=== PATIENT | male | born 1930 | race African-American/Black ===

== ENCOUNTER 2016-10-09 14:04 | Emergency (ER) | payer MEDICARE ==
[~2016-10-09] VITALS: Ht 182.9 cm; Wt 72.6 kg
[~2016-10-09 14:04] MED LIST: AMLO10TA2 PO; ASPI325T4 PO; ATORVASTATIN CA80 MG PO; BRIM5DRO EACHEYE; FURO40TA4 PO; HYDR-2666 PO; HYDR25TA PO; LATA2.5D3 OP; METO25TA9 PO; OMEP40CA5 PO; TIMO5DRO5 EACHEYE
[2016-10-09] MEDS ORDERED: ACETAMINOPHEN 325 MG TABLET. PO ONE (15:45)
[2016-10-09] MEDS ORDERED: LABETALOL 20 MG/4 ML DISP.SYRIN. IVP ONE (15:45)
[2016-10-09 15:51] LABS: BASO % 0 % (0-3); EOS % 1 % (0-3); HEMATOCRIT 41.2 % (39.0-53.0); HEMOGLOBIN 13.6 g/dL (13.0-17.5); LYMPH # 1.5 x10^3/uL (1.0-4.8); LYMPH % 27 % (24-48); MEAN CORPUSCULAR HEMOGLOBIN 28 pg (25-35); MEAN CORPUSCULAR HGB CONC 33 g/dL (31-37); MEAN CORPUSCULAR VOLUME 85 fL (79-100); MONO % 5 % (0-9); NEUT % 67 % (31-73); PLATELET COUNT 223 x10^3/uL (140-400); RED BLOOD COUNT 4.83 x10^6/uL (4.30-5.70); WHITE BLOOD COUNT 5.5 x10^3/uL (4.0-11.0)
--- NOTE | 2016-10-09 16:20 | RAD ---
CT of the head without contrast, 10/09/2016: History: Headache There is mild cerebral atrophy. The ventricles are within normal limits in size. There is no shift of the midline structures. There is no evidence of acute intracranial hemorrhage or mass effect. Several faint bilateral deep white matter lucencies are noted compatible with chronic ischemic change. There is calcific plaquing of the distal internal carotid arteries. IMPRESSION: 1. Chronic findings as described above. 2. No acute intracranial abnormality is detected. PQRS Compliance Statement: One or more of the following individualized dose reduction techniques were utilized for this examination: 1. Automated exposure control 2. Adjustment of the mA and/or kV according to patient size 3. Use of iterative reconstruction technique
[2016-10-09 16:41] LABS: CALCIUM 10.2 mg/dL (8.5-10.1); CREATININE 1.5 mg/dL (0.7-1.3); GFR 53.8; POTASSIUM 4.2 mmol/L (3.5-5.1)
[2016-10-09 16:49] LABS: BILIRUBIN,URINE NEGATIVE (NEG); GLUCOSE,URINE NEGATIVE (NEG); NITRITE,URINE NEGATIVE (NEG); PH,URINE 6.5; PROTEIN,URINE 100 mg/dL (NEG-TRACE); UROBILINOGEN,URINE 0.2 mg/dL (0.2 mg/dL)
[2016-10-09 17:05] LABS: BACTERIA,URINE FEW /HPF (0-FEW); RBC,URINE 0 /HPF (0-2); SQUAMOUS EPITHELIAL CELL,UR OCC /LPF; WBC,URINE OCC /HPF (0-4)
--- NOTE | 2016-10-09 18:26 | PHYS DOC ---
Past Medical History Past Medical History: Arthritis, GERD, Glaucoma, High Cholesterol, Hypertension Past Surgical History: Other Additional Past Surgical Histo: back surgery Alcohol Use: None Drug Use: None Adult General Chief Complaint Chief Complaint: MULTIPLE COMPLAINTS HPI HPI 86-year-old male who has known history of uncontrolled hypertension and presents with headache that's been present for the last 2-3 weeks. 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 He states he was concerned because he is still having his ongoing headaches. He is also concerned because he had no appetite today. He denies any nausea or vomiting. He denies any fever or chills. He denies any chest pain or shortness of breath. The headache today feels consistent with headaches he's been having for the last several weeks. Review of Systems Review of Systems Constitutional: Denies fever or chills [] Eyes: Denies change in visual acuity, redness, or eye pain [] HENT: Denies nasal congestion or sore throat [] Respiratory: Denies cough or shortness of breath [] Cardiovascular: No additional information not addressed in HPI [] GI: Denies abdominal pain, nausea, vomiting, bloody stools or diarrhea [] : Denies dysuria or hematuria [] Musculoskeletal: Denies back pain or joint pain [] Integument: Denies rash or skin lesions [] Neurologic: Has headache, denies focal weakness or sensory changes [] Endocrine: Denies polyuria or polydipsia [] Current Medications Current Medications Current Medications Medications (Trade) Dose Ordered Sig/Bibi Start Time Stop Time Status Last Admin Dose Admin Acetaminophen (Tylenol) 650 mg 1X ONCE 10/09/16 15:45 10/09/16 15:46 DC 10/09/16 16:17 650 MG Labetalol HCl (Normodyne) 20 mg 1X ONCE 10/09/16 15:45 10/09/16 15:46 DC 10/09/16 16:20 20 MG Allergies Allergies Allergies Coded Allergies Type Severity Reaction Last Updated Verified codeine Adverse Reaction Intermediate doesnt like the way it makes him feel Yes Physical Exam Physical Exam Constitutional: Well developed, well nourished, no acute distress, non-toxic appearance. [] HENT: Normocephalic, atraumatic, bilateral external ears normal, oropharynx moist, no oral exudates, nose normal. [] Eyes: PERRLA, right eye is covered, left eye appears normal, conjunctiva normal , no discharge. [] Neck: Normal range of motion, no tenderness, supple, no stridor. [] Cardiovascular:Heart rate regular rhythm, no murmur [] Lungs & Thorax: Bilateral breath sounds clear to auscultation [] Abdomen: Bowel sounds normal, soft, no tenderness, no masses, no pulsatile masses. [] Skin: Warm, dry, no erythema, no rash. [] Back: No tenderness, no CVA tenderness. [] Extremities: No tenderness, no cyanosis, no clubbing, ROM intact, no edema. [] Neurologic: Alert and oriented X 3, normal motor function, normal sensory function, no focal deficits noted. [] Psychologic: Affect normal, judgement normal, mood normal. [] Current Patient Data Vital Signs Vital Signs Date Time Temp Pulse Resp B/P Pulse Ox O2 Delivery O2 Flow Rate FiO2 10/09/16 18:27 78 180/82 Room Air 10/09/16 17:57 98 10/09/16 14:25 97.4 16 97.4 Lab Values Laboratory Tests Test 10/09/16 14:30 10/09/16 14:45 10/09/16 16:20 Urine Color Yellow Urine Clarity Clear Urine pH 6.5 Urine Specific [place] 1.025 Urine Protein 100mg/dL (NEG-TRACE) Urine Glucose (UA) Negativemg/dL (NEG) Urine Ketones (Stick) Negativemg/dL (NEG) Urine Blood Negative (NEG) Urine Nitrite Negative (NEG) Urine Bilirubin Negative (NEG) Urine Urobilinogen Dipstick 0.2mg/dL (0.2 mg/dL) Urine Leukocyte Esterase Negative (NEG) Urine RBC 0/HPF (0-2) Urine WBC Occ/HPF (0-4) Urine Squamous Epithelial Cells Occ/LPF Urine Bacteria Few/HPF (0-FEW) Urine Mucus Mod/LPF White Blood Count 5.5x10^3/uL (4.0-11.0) Red Blood Count 4.83x10^6/uL (4.30-5.70) Hemoglobin 13.6g/dL (13.0-17.5) Hematocrit 41.2% (39.0-53.0) Mean Corpuscular Volume 85fL (79-100) Mean Corpuscular Hemoglobin 28pg (25-35) Mean Corpuscular Hemoglobin Concent 33g/dL (31-37) Red Cell Distribution Width 16.0% (11.5-14.5) H Platelet Count 223x10^3/uL (140-400) Neutrophils (%) (Auto) 67% (31-73) Lymphocytes (%) (Auto) 27% (24-48) Monocytes (%) (Auto) 5% (0-9) Eosinophils (%) (Auto) 1% (0-3) Basophils (%) (Auto) 0% (0-3) Neutrophils # (Auto) 3.7x10^3uL (1.8-7.7) Lymphocytes # (Auto) 1.5x10^3/uL (1.0-4.8) Monocytes # (Auto) 0.3x10^3/uL (0.0-1.1) Eosinophils # (Auto) 0.0x10^3/uL (0.0-0.7) Basophils # (Auto) 0.0x10^3/uL (0.0-0.2) Sodium Level 141mmol/L (136-145) Potassium Level 4.2mmol/L (3.5-5.1) Chloride Level 104mmol/L (98-107) Carbon Dioxide Level 28mmol/L (21-32) Anion Gap 9 (6-14) Blood Urea Nitrogen 19mg/dL (8-26) Creatinine 1.5mg/dL (0.7-1.3) H Estimated GFR (Cockcroft-Gault) 53.8 Glucose Level 131mg/dL (70-99) H Calcium Level 10.2mg/dL (8.5-10.1) H Laboratory Tests 10/09/16 14:45 Laboratory Tests 10/09/16 16:20 EKG EKG EKG is interpreted by me shows sinus rhythm with a nonspecific intraventricular block. There is an approximate rate 85 bpm. There are no obvious ischemic findings on this EKG. Radiology/Procedures Radiology/Procedures CT of the head without contrast demonstrated the following: There is mild cerebral atrophy. The ventricles are within normal limits in size. There is no shift of the midline structures. There is no evidence of acute intracranial hemorrhage or mass effect. Several faint bilateral deep white matter lucencies are noted compatible with chronic ischemic change. There is calcific plaquing of the distal internal carotid arteries. Course & Med Decision Making Course & Med Decision Making Pertinent Labs and Imaging studies reviewed. (See chart for details) This 86-year-old male was observed in the department and given a dose of 20 mg of labetalol for an elevated blood pressure. Laboratory workup is essentially unrevealing. His EKG and head CT were also unremarkable. I counseled the patient at length that he needs to have his blood pressure reevaluated next 1-2 days. I placed a call to Dr. Tim who stated the patient should call and have an appointment in the next 1-2 days to have the blood pressure reevaluated. Patient was given a meal and successfully oral challenge. He felt acutely improved after being observed for several hours. I do not see an indication this time to keep him in the hospital as he be ultimately obtained very close follow-up for his uncontrolled blood pressure. He was given strict instruction to return if he develops any worsening of his headache any symptoms such as chest pain or shortness of breath. Dragon Disclaimer Dragon Disclaimer This electronic medical record was generated, in whole or in part, using a voice recognition dictation system. Departure Departure Impression: Primary Impression: Headache Disposition: 01 HOME, SELF-CARE Admitting Physician: Other Condition: STABLE Referrals: FERNANDA ARENAS Jr, MD (PCP) Patient Instructions: General Headache Without Cause, Hypertension During , [id number] Additional Instructions: Please follow up with your primary doctor in the next 1-2 days as discussed to have your blood pressure rechecked. Return to the ER if you develop any worsening of your symptoms. MARCIA CRISTINA DO Oct 09, 2016 18:26
[2016-10-09 18:27] VITALS: BP 180/82
--- NOTE | 2016-10-10 07:17 | EKG ---
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
== END 2016-10-09 18:46 | disposition home or self-care (01) ==
LOC: ER 14:04
DX: R51 Headache (principal); E78.00 Pure hypercholesterolemia, unspecified; K21.9 Gastro-esophageal reflux disease without esophagitis; I10 Essential (primary) hypertension; M19.90 Unspecified osteoarthritis, unspecified site; H40.9 Unspecified glaucoma; Z88.5 Allergy status to narcotic agent
CPT/HCPCS: 36415; 70450; 80048; 81001; 85027; 96374; 99285; J3490; 93005

== ENCOUNTER 2016-10-12 19:20 | Inpatient (IN) | payer MEDICARE ==
[~2016-10-12] VITALS: Ht 182.9 cm; Wt 73.0 kg
[2016-10-12 19:40] LABS: BASO % 1 % (0-3); EOS % 1 % (0-3); HEMATOCRIT 44.3 % (39.0-53.0); HEMOGLOBIN 14.5 g/dL (13.0-17.5); LYMPH # 2.1 x10^3/uL (1.0-4.8); LYMPH % 28 % (24-48); MEAN CORPUSCULAR HEMOGLOBIN 28 pg (25-35); MEAN CORPUSCULAR HGB CONC 33 g/dL (31-37); MEAN CORPUSCULAR VOLUME 85 fL (79-100); MONO % 6 % (0-9); NEUT % 65 % (31-73); PLATELET COUNT 246 x10^3/uL (140-400); RED BLOOD COUNT 5.19 x10^6/uL (4.30-5.70); RED CELL DISTRIBUTION WIDTH 16.4 % (11.5-14.5); WHITE BLOOD COUNT 7.7 x10^3/uL (4.0-11.0)
[2016-10-12 19:49] LABS: CALCIUM 10.5 mg/dL (8.5-10.1); CREATININE 1.6 mg/dL (0.7-1.3); POTASSIUM 4.1 mmol/L (3.5-5.1)
[2016-10-12] MEDS ORDERED: ASPI325T4 PO (19:51)
[2016-10-12] MEDS ORDERED: GABA-585 PO (19:52)
[2016-10-12] MEDS ORDERED: VALS160T3 PO (19:52)
[2016-10-12] MEDS ORDERED: ATOR40TA59 PO (19:52)
[2016-10-12] MEDS ORDERED: ACETAMINOPHEN 325 MG TABLET. PO ONE (20:15)
[2016-10-12] MEDS ORDERED: hydrALAZINE 20 MG/ML VIAL. IVP ONE (20:15)
--- NOTE | 2016-10-12 20:23 | PHYS DOC ---
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 Today at bedside it is elevated at 208/110. I evaluated this patient 4 days ago for similar symptoms and had discharged him with close primary care follow-up to have his blood pressure rechecked. Patient does state he was able to follow-up with his primary care doctor but that it was not elevated at that time. He states his blood pressure was in the 130s systolic range in the primary care office. He also states he did not have a headache at that office visit. Patient is not wearing his eye patch that he wore during his previous visit. He states his diplopia has improved. Review of Systems Review of Systems Constitutional: Denies fever or chills [] Eyes: Denies change in visual acuity, redness, or eye pain [] HENT: Denies nasal congestion or sore throat [] Respiratory: Denies cough or shortness of breath [] Cardiovascular: No additional information not addressed in HPI [] GI: Denies abdominal pain, nausea, vomiting, bloody stools or diarrhea [] : Denies dysuria or hematuria [] Musculoskeletal: Denies back pain or joint pain [] Integument: Denies rash or skin lesions [] Neurologic: Has headache, focal weakness or sensory changes [] Endocrine: Denies polyuria or polydipsia [] Current Medications Current Medications Current Medications Medications (Trade) Dose Ordered Sig/Bibi Start Time Stop Time Status Last Admin Dose Admin Acetaminophen (Tylenol) 650 mg 1X ONCE 10/12/16 20:15 10/12/16 20:16 DC 10/12/16 20:04 650 MG Hydralazine HCl (Apresoline) 10 mg 1X ONCE 10/12/16 20:15 10/12/16 20:16 DC 10/12/16 20:05 10 MG Allergies Allergies Allergies Coded Allergies Type Severity Reaction Last Updated Verified codeine Adverse Reaction Intermediate doesnt like the way it makes him feel Yes Physical Exam Physical Exam Constitutional: Well developed, well nourished, no acute distress, non-toxic appearance. [] HENT: Normocephalic, atraumatic, bilateral external ears normal, oropharynx moist, no oral exudates, nose normal. [] Eyes: PERRLA, EOMI, conjunctiva normal, no discharge. [] Neck: Normal range of motion, no tenderness, supple, no stridor. [] Cardiovascular:Heart rate regular rhythm, no murmur [] Lungs & Thorax: Bilateral breath sounds clear to auscultation [] Abdomen: Bowel sounds normal, soft, no tenderness, no masses, no pulsatile masses. [] Skin: Warm, dry, no erythema, no rash. [] Back: No tenderness, no CVA tenderness. [] Extremities: No tenderness, no cyanosis, no clubbing, ROM intact, no edema. [] Neurologic: Alert and oriented X 3, normal motor function, normal sensory function, no focal deficits noted. [] Psychologic: Affect normal, judgement normal, mood normal. [] Current Patient Data Vital Signs Vital Signs Date Time Temp Pulse Resp B/P Pulse Ox O2 Delivery O2 Flow Rate FiO2 10/12/16 20:05 87 179/101 10/12/16 19:38 98.7 16 99 Room Air 98.7 Lab Values Laboratory Tests Test 10/12/16 19:33 White Blood Count 7.7x10^3/uL (4.0-11.0) Red Blood Count 5.19x10^6/uL (4.30-5.70) Hemoglobin 14.5g/dL (13.0-17.5) Hematocrit 44.3% (39.0-53.0) Mean Corpuscular Volume 85fL (79-100) Mean Corpuscular Hemoglobin 28pg (25-35) Mean Corpuscular Hemoglobin Concent 33g/dL (31-37) Red Cell Distribution Width 16.4% (11.5-14.5) H Platelet Count 246x10^3/uL (140-400) Neutrophils (%) (Auto) 65% (31-73) Lymphocytes (%) (Auto) 28% (24-48) Monocytes (%) (Auto) 6% (0-9) Eosinophils (%) (Auto) 1% (0-3) Basophils (%) (Auto) 1% (0-3) Neutrophils # (Auto) 5.0x10^3uL (1.8-7.7) Lymphocytes # (Auto) 2.1x10^3/uL (1.0-4.8) Monocytes # (Auto) 0.5x10^3/uL (0.0-1.1) Eosinophils # (Auto) 0.1x10^3/uL (0.0-0.7) Basophils # (Auto) 0.0x10^3/uL (0.0-0.2) Sodium Level 143mmol/L (136-145) Potassium Level 4.1mmol/L (3.5-5.1) Chloride Level 103mmol/L (98-107) Carbon Dioxide Level 29mmol/L (21-32) Anion Gap 11 (6-14) Blood Urea Nitrogen 16mg/dL (8-26) Creatinine 1.6mg/dL (0.7-1.3) H Estimated GFR (Cockcroft-Gault) 50.0 Glucose Level 127mg/dL (70-99) H Calcium Level 10.5mg/dL (8.5-10.1) H Laboratory Tests 10/12/16 19:33 Laboratory Tests 10/12/16 19:33 EKG EKG EKG as interpreted by me shows sinus rhythm with a nonspecific intraventricular block that has been there previously. There is an approximate rate of 87 bpm. There are no obvious acute ischemic findings on this EKG. Radiology/Procedures Radiology/Procedures [] Course & Med Decision Making Course & Med Decision Making Pertinent Labs and Imaging studies reviewed. (See chart for details) This 86-year-old male with ongoing uncontrolled high blood pressure will be admitted to the hospital as I believe his headache is secondary to an uncontrolled blood pressure and he is in a hypertensive urgency scenario. I evaluated the patient multiple times and believe his pressure to be poorly controlled. This is despite him being seen in the office and having a normal blood pressure on Friday. He states he did have a head CT on my last evaluation and there is no indication at this time to repeat the imaging. A dose of IV hydralazine was ordered as well as Tylenol for the headache. His laboratory workup is unremarkable. His case was discussed with the hospitalist, Dr. Medrano , who agreed to admit for further work up regarding his uncontrolled hypertension. Dragon Disclaimer Dragon Disclaimer This electronic medical record was generated, in whole or in part, using a voice recognition dictation system. Departure Departure Impression: Primary Impression: Hypertensive urgency Additional Impression: Headache Disposition: 09 ADMITTED INPATIENT Admitting Physician: Tiffanie Medrano Condition: STABLE Referrals: FERNANDA ARENAS Jr, MD (PCP) Problem Qualifiers MARCIA CRISTINA DO Oct 12, 2016 20:23
[2016-10-12] MEDS ORDERED: ONDANSETRON PF 4 MG/2 ML VIAL. IV PRN ×2 (21:00→22:19)
[2016-10-12] MEDS ORDERED: LABETALOL 20 MG/4 ML DISP.SYRIN. IVP PRN (21:00)
[2016-10-12] MEDS ORDERED: OXYMETAZOLINE 0.05% NASAL SPRAY 30ML BOTTLE. NS PRN (21:00)
[2016-10-12] MEDS ORDERED: ACETAMINOPHEN 325 MG TABLET. PO PRN (21:00)
--- NOTE | 2016-10-12 21:12 | ACF ---
Admission Forms Criteria HYPERTENSION Clinical Indications for Admission to Inpatient Care ( Place "X" for any and all applicable criteria): Admission is indicated for ANY ONE of the following(1)(2)(3)(4): [ ]I. Hypertensive emergency, with evidence of acute and progressing target organ disease as indicated by ANY ONE of the following: [ ]a) Hypertensive encephalopathy (eg, confusion, altered mental status) [ ]b) Cerebral infarction [ ]c) Intracranial hemorrhage [ ]d) Myocardial ischemia or infarction [ ]e) Pulmonary edema [ ]f) Aortic dissection [ ]g) Seizure [ ]h) Acute renal insufficiency [ ]i) Papilledema [ ]j) Microangiopathic hemolytic anemia [ ]II. Adrenergic crisis (eg, severe hypertension due to pheochromocytoma crisis, cocaine or amphetamine intoxication, or clonidine withdrawal) [X]III. Severe hypertension (SBP greater than 180 mmHg or DBP greater than 110 mmHg or greater than the 95th percentile for age, gender, and height in pediatric patients) that cannot be controlled (eg, to SBP less than 160 mmHg and DBP less than 100 mmHg in adults) by treatment with oral medication in emergency department or observation care Extended stay beyond goal length of stay may be needed for(11)(12)(13): [ ]a) Persistent hypertensive encephalopathy [ ]b) Continuation of pulmonary edema [ ]c) Recurring or persistent severe hypertension [ ]d) Target organ damage (eg, angina, stroke, aortic dissection) [ ]e) Associated renal insufficiency The original [facility] content created by [employer] has been revised. The portions of the content which have been revised are identified through the use of italic text or in bold, and [facility] has neither reviewed nor approved the modified material. All other unmodified content is copyright [facility] [email or web address]. Please see references footnoted in the original [facility] [employer] Funding edition 2016 Admission Criteria Met?: Yes KATLIN BERNARD Oct 12, 2016 21:12
[2016-10-12] MEDS ORDERED: OXYM15MI4 NS (21:44)
[2016-10-12 21:56] LABS: BILIRUBIN,URINE NEGATIVE (NEG); GLUCOSE,URINE NEGATIVE (NEG); NITRITE,URINE NEGATIVE (NEG); PROTEIN,URINE 30 mg/dL (NEG-TRACE); UROBILINOGEN,URINE 0.2 mg/dL (0.2 mg/dL)
[2016-10-12] MEDS: FENTANYL PF 100 MCG/2 ML VIAL. IV PRN (21:56)
[2016-10-12 22:05] LABS: BACTERIA,URINE 0 /HPF (0-FEW); RBC,URINE 0 /HPF (0-2); SQUAMOUS EPITHELIAL CELL,UR FEW /LPF
[2016-10-12 23:00] VITALS: BP 151/79
[2016-10-13] MEDS: IV NORMAL SALINE 1000ML BAG 1,000 ML IV SCH ×2 (00:24→11:07)
[2016-10-13] MEDS: FENTANYL PF 100 MCG/2 ML VIAL. IV PRN ×4 (01:40→11:07)
[2016-10-13 03:59] VITALS: BP 155/86
[2016-10-13 06:52] LABS: BASO % 0 % (0-3); EOS % 1 % (0-3); HEMATOCRIT 38.7 % (39.0-53.0); HEMOGLOBIN 12.7 g/dL (13.0-17.5); LYMPH # 2.3 x10^3/uL (1.0-4.8); LYMPH % 35 % (24-48); MEAN CORPUSCULAR HEMOGLOBIN 28 pg (25-35); MEAN CORPUSCULAR HGB CONC 33 g/dL (31-37); MEAN CORPUSCULAR VOLUME 84 fL (79-100); MONO % 7 % (0-9); NEUT % 57 % (31-73); PLATELET COUNT 223 x10^3/uL (140-400); RED BLOOD COUNT 4.59 x10^6/uL (4.30-5.70); RED CELL DISTRIBUTION WIDTH 15.9 % (11.5-14.5); WHITE BLOOD COUNT 6.6 x10^3/uL (4.0-11.0)
[2016-10-13 07:00] VITALS: BP 133/76
[2016-10-13 07:07] LABS: CALCIUM 9.5 mg/dL (8.5-10.1); CREATININE 1.3 mg/dL (0.7-1.3); GFR 63.5; POTASSIUM 3.9 mmol/L (3.5-5.1)
[2016-10-13] MEDS: PANTOPRAZOLE 40 MG TABLET. PO SCH (08:12)
[2016-10-13] MEDS: HYDROXYZINE PAMOATE 25 MG CAPSULE PO SCH ×2 (08:12→21:22)
[2016-10-13] MEDS: LOSARTAN POTASSIUM 50 MG TABLET. PO SCH (08:13)
[2016-10-13] MEDS: BRIMONIDINE 0.2% OPHTH SOLUTION 5ML BOTTLE. OU SCH ×2 (08:13→21:24)
[2016-10-13] MEDS: TIMOLOL 0.5% OPHTH SOLUTION 5ML BOTTLE. OU SCH (08:14)
--- NOTE | 2016-10-13 09:08 | EKG ---
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
[2016-10-13] MEDS: MORPHINE SULFATE 2 MG/ML DISP.SYRIN. IV PRN ×4 (09:09→21:19)
[2016-10-13 11:00] VITALS: BP 146/83
--- NOTE | 2016-10-13 11:32 | EKG ---
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
[2016-10-13 15:00] VITALS: BP 120/74
--- NOTE | 2016-10-13 15:19 | PDOC1 ---
History and Physical Date of Admission Date of Admission DATE: 10/13/16 TIME: 15:12 Identification/Chief Complaint Chief Complaint headaches, high bp Source Source: Caregiver, Chart review, Patient History of Present Illness History of Present Illness 86 y./o AA male s/p CABG here by our group,. cards is Dr. Armendariz, admitted thru ER last night bec of symptomatic hTN urgency, This was his second ER visit in the last 4-5 days, was advised admission then but refused. Today he agreed, BP high side, calcium was higha nd had some GREGORIO which seemed to have resolved now that I have started IVF since the AM. Complains of headache, PT ahs not worked with him. Lives at home, family involved in care Relays to me about possibly taking a pill for HTN at home prn when BP shoots up which it does he claims, everytime he leaves the hospital, He is compliant with his home meds, PCP Dr. Cb Wall PE : WNL IVF running at 75cc.hr Past Medical History Cardiovascular: CAD, HTN, Hyperlipidemia Pulmonary: No pertinent hx CENTRAL NERVOUS SYSTEM: Other GI: GERD Heme/Onc: No pertinent hx Hepatobiliary: No pertinent hx Psych: No pertinent hx Musculoskeletal: low back pain, Osteoarthritis Rheumatologic: No pertinent hx Renal/: Chronic renal insuff, Benign prostatic enlarg., Urinary Incontinence Endocrine: No pertinent hx Past Surgical History Past Surgical History: Other Family History Family History: No Significant, Family History Unknown Social History Smoke: No ALCOHOL: none Drugs: None Current Problem List Problem List Problems Medical Problems: (1) Headache Status: Acute (2) Hypertensive urgency Status: Acute Problems: Current Medications Current Medications Current Medications Hydralazine HCl (Apresoline) 10 mg 1X ONCE IVP Last administered on 10/12/16t 20:05; Start 10/12/16 at 20:15; Stop 10/12/16 at 20:16; Status DC Acetaminophen (Tylenol) 650 mg 1X ONCE PO Last administered on 10/12/16 20:04 ; Start 10/12/16 at 20:15; Stop 10/12/16 at 20:16; Status DC Labetalol HCl (Normodyne) 10 mg PRN Q2HR PRN IVP HYPERTENSION, SEE COMMENTS; Start 10/12/16 at 21:00 Ondansetron HCl (Zofran) 4 mg PRN Q8HRS PRN IV NAUSEA/VOMITING; Start 10/12/16 at 21:00; Stop 10/12/16 at 22:22; Status DC Fentanyl Citrate (Fentanyl 2ml Vial) 50 mcg PRN Q2HR PRN IV PAIN Last administered on 10/13/16 11:07; Start 10/12/16 at 21:00; Stop 10/13/16 at 20:59 Acetaminophen (Tylenol) 650 mg PRN Q4HRS PRN PO FEVER; Start 10/12/16 at 21:00 ; Stop 10/13/16 at 20:59 Ondansetron HCl 4 mg 4 mg PRN Q6HRS PRN IV NAUSEA/VOMITING Last administered on 10/13/16 08:57; Start 10/12/16 at 22:19 Sodium Chloride (Iv Sodium Chloride 0.9% 1000ml Bag) 1,000 ml @ 75 mls/hr [id number] IV Last administered on 10/13/16 11:07; Start 10/12/16 at 22:30 Aspirin (Ease My Sell Aspirin) 325 mg WEEKLY PO ; Start 10/19/16 at 09:00; Stop at 09:00; Status DC Atorvastatin Calcium (Lipitor) 40 mg HS PO ; Start 10/13/16 at 21:00 Gabapentin (Neurontin) 100 mg HS PO ; Start 10/13/16 at 21:00 Latanoprost (Xalatan) 1 drop HS OU ; Start 10/13/16 at 21:00 Timolol Maleate (Timoptic 0.5% Ophth) 1 drop DAILYWBKFT OU Last administered on 10/13/16 08:14; Start 10/13/16 at 08:00 Brimonidine Tartrate (Alphagan) 1 drop BID OU Last administered on 10/13/16 08 :13; Start 10/13/16 at 09:00 Hydroxyzine Pamoate (Vistaril) 25 mg BID PO Last administered on 10/13/16 08: 12; Start 10/13/16 at 09:00 Pantoprazole Sodium (Protonix) 40 mg DAILYAC PO Last administered on 10/13/16 08:12; Start 10/13/16 at 07:30 Oxymetazoline HCl (Afrin) 2 spray PRN QHS PRN NS NASAL CONGESTION; Start at 21:00 Losartan Potassium (Cozaar) 100 mg DAILY PO Last administered on 10/13/16 08: 13; Start 10/13/16 at 09:00 Aspirin (Jamel Aspirin) 325 mg DAILY PO ; Start 10/19/16 at 09:00 Morphine Sulfate 2 mg PRN Q2HR PRN IV PAIN Last administered on 10/13/16 13:30 ; Start 10/13/16 at 09:00 Active Scripts Active Reported Afrin (Oxymetazoline Hcl) 15 Ml Mist 15 Ml NS HS PRN Atorvastatin Calcium 40 Mg Tablet 1 Tab PO HS Diovan (Valsartan) 160 Mg Tablet 160 Mg PO DAILY Gabapentin 100 Mg Capsule 100 Mg PO HS Aspirin 325 Mg Tablet 1 Tab PO WEEKLY Furosemide 40 Mg Tablet 20 Mg PO PRN DAILY PRN 7 Days Hydroxyzine Hcl 25 Mg Tablet 1 Tab PO BID Latanoprost 2.5 Ml Drops 1 Drop OP HS Alphagan P (Brimonidine Tartrate) 5 Ml Drops 1 Drop EACHEYE BID Timolol Maleate 10 Ml Drops 1 Drop EACHEYE DAILYWBKFT Omeprazole 40 Mg Capsule.dr 40 Mg PO DAILY Allergies Allergies: Coded Allergies: codeine (Verified Adverse Reaction, Intermediate, doesnt like the way it makes him feel, 12/19/15) ROS General: YES: Other (headache) PSYCHOLOGICAL ROS: No: Anxiety, Behavioral Disorder, Concentration difficultie , Decreased libido, Depression, Disorientation, Hallucinations, Hostility, Irritablity, Memory difficulties, Mood Swings, Obsessive thoughts, Other, Physical abuse, Sexual abuse, Sleep disturbances, Suicidal ideation Eyes: No Blurry vision, No Decreased vision, No Double vision, No Dry eyes, No Excessive tearing, No Eye Pain, No Itchy Eyes, No Loss of vision, No Other, No Photophobia, No Scotomata, No Uses contacts, No Uses glasses HEENT: No: Epistaxis, Heacaches, Hearing change, Nasal congestion, Nasal discharge, Oral lesions, Other, Sinus pain, Sneezing, Snoring, Sore Throat, Tinnitus, Vertigo, Visual Changes, Vocal changes ALLERGY AND IMMUNOLOGY: No: Hives, Insect Bite Sensitivity, Itchy/Watery Eyes, Nasal Congestion, Other, Post Nasal Drip, Seasonal Allergies Hematological and Lymphatic: No: Bleeding Problems, Blood Clots, Blood Transfusions, Brusing, Night Sweats, Other, Pallor, Swollen Lymph Nodes ENDOCRINE: No: Breast Changes, Galactorrhea, Hair Pattern Changes, Hot Flashes , Malaise/lethargy, Mood Swings, Other, Palpitations, Polydipsia/polyuria, Skin Changes, Temperature Intolerance, Unexpected Weight Changes Breast: No New/Changing Breast Lumps, No Nipple changes, No Nipple discharge, No Other Respiratory: No: Cough, Hemoptysis, Orthopnea, Other, Pleuritic Pain, SOB with excertion, Shortness of breath, Sputum Changes, Stridor, Tachypnea, Wheezing Cardiovascular: No Chest Pain, No Edema, No Lt Headedness, No Orthopnea, No Other, No Palpitations, No Paroxysmal Noc. Dyspnea Gastrointestinal: No Abdominal Pain, No Constipation, No Diarrhea, No Hematochezia, No Melena, No Nausea, No Other, No Vomiting Genitourinary: No , No , No , No , No , No , No , No Discharge, No Dysuria, No Flank Pain, No Frequency, No Hematuria, No Incontinence, No Other, No Pain, No Retention, No Urgency Musculoskeletal: No Gait Disturbance, No Joint Pain, No Joint Stiffness, No Joint Swelling, No Muscle Pain, No Muscular Weakness, No Other, No Pain In:, No Swelling In: Neurological: No Behavorial Changes, No Bowel/Bladder ControlChng, No Confusion , No Dizziness, No Gait Disturbance, No Headaches, No Impaired Coord/balance, No Memory Loss, No Numbness/Tingling, No Other, No Seizures, No Speech Problems , No Tremors, No Visual Changes, No Weakness Skin: No Acne, No Dry Skin, No Eczema, No Hair Changes, No Lumps, No Mole Changes, No Mottling, No Nail Changes, No Other, No Pruritus, No Rash, No Skin Lesion Changes Physical Exam General: Alert, No acute distress HEENT: Atraumatic, EOMI Lungs: Clear to auscultation, Normal air movement Heart: S1S2, RRR, no thrills, no rubs, no gallops, no murmurs Cardiovascular: S1, S2 Breasts: Normal Abdomen: Normal bowel sounds, Soft, No tenderness, No hepatosplenomegaly, No masses Male Genitals Exam: normal genitalia, normal prostate Extremities: No clubbing, No cyanosis, No edema, Normal pulses, No tenderness/ swelling Skin: No rashes, No breakdown, No significant lesion Neuro: Normal gait Psych/Mental Status: Mental status NL, Mood NL Vitals Vitals Vital Signs Date Time Temp Pulse Resp B/P Pulse Ox O2 Delivery O2 Flow Rate FiO2 10/13/16 13:30 Room Air 10/13/16 11:00 98.1 86 20 146/83 98 98.1 Labs Labs Laboratory Tests Test 10/12/16 19:33 10/12/16 21:39 10/13/16 04:55 10/13/16 09:00 White Blood Count 7.7x10^3/uL (4.0-11.0) 6.6x10^3/uL (4.0-11.0) Red Blood Count 5.19x10^6/uL (4.30-5.70) 4.59x10^6/uL (4.30-5.70) Hemoglobin 14.5g/dL (13.0-17.5) 12.7g/dL (13.0-17.5) Hematocrit 44.3% (39.0-53.0) 38.7% (39.0-53.0) Mean Corpuscular Volume 85fL (79-100) 84fL (79-100) Mean Corpuscular Hemoglobin 28pg (25-35) 28pg (25-35) Mean Corpuscular Hemoglobin Concent 33g/dL (31-37) 33g/dL (31-37) Red Cell Distribution Width 16.4% (11.5-14.5) 15.9% (11.5-14.5) Platelet Count 246x10^3/uL (140-400) 223x10^3/uL (140-400) Neutrophils (%) (Auto) 65% (31-73) 57% (31-73) Lymphocytes (%) (Auto) 28% (24-48) 35% (24-48) Monocytes (%) (Auto) 6% (0-9) 7% (0-9) Eosinophils (%) (Auto) 1% (0-3) 1% (0-3) Basophils (%) (Auto) 1% (0-3) 0% (0-3) Neutrophils # (Auto) 5.0x10^3uL (1.8-7.7) 3.8x10^3uL (1.8-7.7) Lymphocytes # (Auto) 2.1x10^3/uL (1.0-4.8) 2.3x10^3/uL (1.0-4.8) Monocytes # (Auto) 0.5x10^3/uL (0.0-1.1) 0.5x10^3/uL (0.0-1.1) Eosinophils # (Auto) 0.1x10^3/uL (0.0-0.7) 0.0x10^3/uL (0.0-0.7) Basophils # (Auto) 0.0x10^3/uL (0.0-0.2) 0.0x10^3/uL (0.0-0.2) Sodium Level 143mmol/L (136-145) 144mmol/L (136-145) Potassium Level 4.1mmol/L (3.5-5.1) 3.9mmol/L (3.5-5.1) Chloride Level 103mmol/L (98-107) 107mmol/L (98-107) Carbon Dioxide Level 29mmol/L (21-32) 24mmol/L (21-32) Anion Gap 11 (6-14) 13 (6-14) Blood Urea Nitrogen 16mg/dL (8-26) 13mg/dL (8-26) Creatinine 1.6mg/dL (0.7-1.3) 1.3mg/dL (0.7-1.3) Estimated GFR (Cockcroft-Gault) 50.0 63.5 Glucose Level 127mg/dL (70-99) 118mg/dL (70-99) Calcium Level 10.5mg/dL (8.5-10.1) 9.5mg/dL (8.5-10.1) Urine Collection Type Unknown Urine Color Yellow Urine Clarity Clear Urine pH 7.0 Urine Specific [place] 1.015 Urine Protein 30mg/dL (NEG-TRACE) Urine Glucose (UA) Negativemg/dL (NEG) Urine Ketones (Stick) Negativemg/dL (NEG) Urine Blood Negative (NEG) Urine Nitrite Negative (NEG) Urine Bilirubin Negative (NEG) Urine Urobilinogen Dipstick 0.2mg/dL (0.2 mg/dL) Urine Leukocyte Esterase Trace (NEG) Urine RBC 0/HPF (0-2) Urine WBC 1-4/HPF (0-4) Urine Squamous Epithelial Cells Few/LPF Urine Bacteria 0/HPF (0-FEW) Urine Mucus Slight/LPF Troponin I Quantitative 0.025ng/mL (0.000-0.055) Laboratory Tests Test 10/12/16 19:33 10/12/16 21:39 10/13/16 04:55 10/13/16 09:00 White Blood Count 7.7x10^3/uL (4.0-11.0) 6.6x10^3/uL (4.0-11.0) Red Blood Count 5.19x10^6/uL (4.30-5.70) 4.59x10^6/uL (4.30-5.70) Hemoglobin 14.5g/dL (13.0-17.5) 12.7g/dL (13.0-17.5) Hematocrit 44.3% (39.0-53.0) 38.7% (39.0-53.0) Mean Corpuscular Volume 85fL (79-100) 84fL (79-100) Mean Corpuscular Hemoglobin 28pg (25-35) 28pg (25-35) Mean Corpuscular Hemoglobin Concent 33g/dL (31-37) 33g/dL (31-37) Red Cell Distribution Width 16.4% (11.5-14.5) 15.9% (11.5-14.5) Platelet Count 246x10^3/uL (140-400) 223x10^3/uL (140-400) Neutrophils (%) (Auto) 65% (31-73) 57% (31-73) Lymphocytes (%) (Auto) 28% (24-48) 35% (24-48) Monocytes (%) (Auto) 6% (0-9) 7% (0-9) Eosinophils (%) (Auto) 1% (0-3) 1% (0-3) Basophils (%) (Auto) 1% (0-3) 0% (0-3) Neutrophils # (Auto) 5.0x10^3uL (1.8-7.7) 3.8x10^3uL (1.8-7.7) Lymphocytes # (Auto) 2.1x10^3/uL (1.0-4.8) 2.3x10^3/uL (1.0-4.8) Monocytes # (Auto) 0.5x10^3/uL (0.0-1.1) 0.5x10^3/uL (0.0-1.1) Eosinophils # (Auto) 0.1x10^3/uL (0.0-0.7) 0.0x10^3/uL (0.0-0.7) Basophils # (Auto) 0.0x10^3/uL (0.0-0.2) 0.0x10^3/uL (0.0-0.2) Sodium Level 143mmol/L (136-145) 144mmol/L (136-145) Potassium Level 4.1mmol/L (3.5-5.1) 3.9mmol/L (3.5-5.1) Chloride Level 103mmol/L (98-107) 107mmol/L (98-107) Carbon Dioxide Level 29mmol/L (21-32) 24mmol/L (21-32) Anion Gap 11 (6-14) 13 (6-14) Blood Urea Nitrogen 16mg/dL (8-26) 13mg/dL (8-26) Creatinine 1.6mg/dL (0.7-1.3) 1.3mg/dL (0.7-1.3) Estimated GFR (Cockcroft-Gault) 50.0 63.5 Glucose Level 127mg/dL (70-99) 118mg/dL (70-99) Calcium Level 10.5mg/dL (8.5-10.1) 9.5mg/dL (8.5-10.1) Urine Collection Type Unknown Urine Color Yellow Urine Clarity Clear Urine pH 7.0 Urine Specific [place] 1.015 Urine Protein 30mg/dL (NEG-TRACE) Urine Glucose (UA) Negativemg/dL (NEG) Urine Ketones (Stick) Negativemg/dL (NEG) Urine Blood Negative (NEG) Urine Nitrite Negative (NEG) Urine Bilirubin Negative (NEG) Urine Urobilinogen Dipstick 0.2mg/dL (0.2 mg/dL) Urine Leukocyte Esterase Trace (NEG) Urine RBC 0/HPF (0-2) Urine WBC 1-4/HPF (0-4) Urine Squamous Epithelial Cells Few/LPF Urine Bacteria 0/HPF (0-FEW) Urine Mucus Slight/LPF Troponin I Quantitative 0.025ng/mL (0.000-0.055) VTE Prophylaxis Ordered VTE Prophylaxis Devices: Yes VTE Pharmacological Prophylaxi: Yes Assessment/Plan Assessment/Plan 1. HTN urgency POA, resolved 2. CAD hx CABG 3. Hx DVT left leg, completed 3 mos of AC 4. HEadaches 5. GREGORIO, vasomotor 6. HYpercalcemia PLAn: Needing IV morphine for headache BP seems better and as per RN not needing to give any IV prn pushes Might need a second agent anti hypertensive since bP shoots up at home CArds consult for any preferential choice - second agent Current iVF to consume Hypercalcemia and GREGORIO seem sto have resolved with overnight IVF prn NSAID vs narcs for headache Await PT.OT Pt would like to go home juhi adorno RN and family DAVONTE NOWAK MD Oct 13, 2016 15:19
[2016-10-13 19:00] VITALS: BP 139/81
[2016-10-13] MEDS ORDERED: GABAPENTIN 100 MG CAPSULE. PO SCH (21:00)
[2016-10-13] MEDS ORDERED: ATORVASTATIN CALCIUM 40 MG TABLET. PO SCH (21:00)
[2016-10-13] MEDS ORDERED: LATANOPROST 0.005% OPHTH SOLUTION 2.5ML BOTTLE. OU SCH (21:00)
[2016-10-13 23:00] VITALS: BP 132/85
[2016-10-14] MEDS: IV NORMAL SALINE 1000ML BAG 1,000 ML IV SCH (01:10)
[2016-10-14 03:00] VITALS: BP 134/88
[2016-10-14 07:36] VITALS: BP 132/84
[2016-10-14] MEDS: PANTOPRAZOLE 40 MG TABLET. PO SCH (08:26)
[2016-10-14] MEDS: BRIMONIDINE 0.2% OPHTH SOLUTION 5ML BOTTLE. OU SCH (08:27)
[2016-10-14] MEDS: TIMOLOL 0.5% OPHTH SOLUTION 5ML BOTTLE. OU SCH (08:27)
[2016-10-14] MEDS: HYDROXYZINE PAMOATE 25 MG CAPSULE PO SCH (08:32)
[2016-10-14] MEDS: LOSARTAN POTASSIUM 50 MG TABLET. PO SCH (08:33)
[2016-10-14 11:03] VITALS: BP 133/78
--- NOTE | 2016-10-14 11:12 | PDOC3 ---
Discharge Summary Visit Information Date of Admission: Oct 12, 2016 Date of Discharge: Oct 14, 2016 Admitting Diagnosis Comment: 1. HTN urgency POA, resolved 2. CAD hx CABG 3. Hx DVT left leg, completed 3 mos of AC 4. HEadaches 5. GREGORIO, vasomotor 6. HYpercalcemia 7. NON compliance Final Diagnosis Problems Medical Problems: (1) Headache Status: Acute (2) Hypertensive urgency Status: Acute Brief Hospital Course Allergies Allergies Coded Allergies Type Severity Reaction Last Updated Verified codeine Adverse Reaction Intermediate doesnt like the way it makes him feel Yes Vital Signs Vital Signs Date Time Temp Pulse Resp B/P Pulse Ox O2 Delivery O2 Flow Rate FiO2 10/14/16 11:03 97.5 90 20 133/78 99 Room Air 97.5 Lab Results Laboratory Tests Test 10/12/16 19:33 10/12/16 21:39 10/13/16 04:55 10/13/16 09:00 White Blood Count 7.7x10^3/uL (4.0-11.0) 6.6x10^3/uL (4.0-11.0) Red Blood Count 5.19x10^6/uL (4.30-5.70) 4.59x10^6/uL (4.30-5.70) Hemoglobin 14.5g/dL (13.0-17.5) 12.7g/dL (13.0-17.5) Hematocrit 44.3% (39.0-53.0) 38.7% (39.0-53.0) Mean Corpuscular Volume 85fL (79-100) 84fL (79-100) Mean Corpuscular Hemoglobin 28pg (25-35) 28pg (25-35) Mean Corpuscular Hemoglobin Concent 33g/dL (31-37) 33g/dL (31-37) Red Cell Distribution Width 16.4% (11.5-14.5) 15.9% (11.5-14.5) Platelet Count 246x10^3/uL (140-400) 223x10^3/uL (140-400) Neutrophils (%) (Auto) 65% (31-73) 57% (31-73) Lymphocytes (%) (Auto) 28% (24-48) 35% (24-48) Monocytes (%) (Auto) 6% (0-9) 7% (0-9) Eosinophils (%) (Auto) 1% (0-3) 1% (0-3) Basophils (%) (Auto) 1% (0-3) 0% (0-3) Neutrophils # (Auto) 5.0x10^3uL (1.8-7.7) 3.8x10^3uL (1.8-7.7) Lymphocytes # (Auto) 2.1x10^3/uL (1.0-4.8) 2.3x10^3/uL (1.0-4.8) Monocytes # (Auto) 0.5x10^3/uL (0.0-1.1) 0.5x10^3/uL (0.0-1.1) Eosinophils # (Auto) 0.1x10^3/uL (0.0-0.7) 0.0x10^3/uL (0.0-0.7) Basophils # (Auto) 0.0x10^3/uL (0.0-0.2) 0.0x10^3/uL (0.0-0.2) Sodium Level 143mmol/L (136-145) 144mmol/L (136-145) Potassium Level 4.1mmol/L (3.5-5.1) 3.9mmol/L (3.5-5.1) Chloride Level 103mmol/L (98-107) 107mmol/L (98-107) Carbon Dioxide Level 29mmol/L (21-32) 24mmol/L (21-32) Anion Gap 11 (6-14) 13 (6-14) Blood Urea Nitrogen 16mg/dL (8-26) 13mg/dL (8-26) Creatinine 1.6mg/dL (0.7-1.3) 1.3mg/dL (0.7-1.3) Estimated GFR (Cockcroft-Gault) 50.0 63.5 Glucose Level 127mg/dL (70-99) 118mg/dL (70-99) Calcium Level 10.5mg/dL (8.5-10.1) 9.5mg/dL (8.5-10.1) Urine Collection Type Unknown Urine Color Yellow Urine Clarity Clear Urine pH 7.0 Urine Specific [place] 1.015 Urine Protein 30mg/dL (NEG-TRACE) Urine Glucose (UA) Negativemg/dL (NEG) Urine Ketones (Stick) Negativemg/dL (NEG) Urine Blood Negative (NEG) Urine Nitrite Negative (NEG) Urine Bilirubin Negative (NEG) Urine Urobilinogen Dipstick 0.2mg/dL (0.2 mg/dL) Urine Leukocyte Esterase Trace (NEG) Urine RBC 0/HPF (0-2) Urine WBC 1-4/HPF (0-4) Urine Squamous Epithelial Cells Few/LPF Urine Bacteria 0/HPF (0-FEW) Urine Mucus Slight/LPF Troponin I Quantitative 0.025ng/mL (0.000-0.055) Test 10/13/16 15:15 2 21:10 Troponin I Quantitative 0.027ng/mL (0.000-0.055) 0.038ng/mL (0.000-0.055) Laboratory Tests Test 10/13/16 15:15 2 21:10 Troponin I Quantitative 0.027ng/mL (0.000-0.055) 0.038ng/mL (0.000-0.055) Brief Hospital Course Mr. Kay is a 86 old Aa male who lives at home, known to Dr. Armendariz admitted for HTN Urgency, Cionsulted cards. 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 This was his second visit to ER, hence admitted, BUt we did not change any BP meds and his BP is 130s systolic, Cleared from cards to dc. HEavy counselling provided today by me, pt seen and examined NO new meds COmnsults: cards Proc; none Discharge Information Condition at Discharge: Improved, Stable Disposition/Orders: D/C to Home Scheduled Aspirin (Aspirin) 1 TAB PO WEEKLY (Reported) Atorvastatin Calcium (Atorvastatin Calcium) 1 TAB PO HS (Reported) Brimonidine Tartrate (Alphagan P) 1 DROP EACHEYE BID (Reported) Gabapentin (Gabapentin) 100 MG PO HS (Reported) Hydroxyzine Hcl (Hydroxyzine Hcl) 1 TAB PO BID (Reported) Latanoprost (Latanoprost) 1 DROP OP HS (Reported) Omeprazole (Omeprazole) 40 MG PO DAILY (Reported) Timolol Maleate (Timolol Maleate) 1 DROP EACHEYE DAILYWBKFT (Reported) Valsartan (Diovan) 160 MG PO DAILY (Reported) Scheduled PRN Furosemide (Furosemide) 20 MG PO PRN DAILY PRN PRN SEE COMMENTS (Reported) Oxymetazoline Hcl (Afrin) 15 ML NS HS PRN PRN CONGESTION (Reported) DAVONTE NOWAK MD Oct 14, 2016 11:12
--- NOTE | 2016-10-14 11:16 | PDOC2 ---
DOMI HELMS SIMULATION TECH 10/14/16 1116: CARDIAC CONSULT DATE OF CONSULT Date of Consult DATE: 10/14/16 TIME: 10:37 REASON FOR CONSULT Reason for Consult: known to you; sp CABG; htn urgency REFERRING PHYSICIAN Referring Physician: Dr. Donald Medrano SOURCE Source: Patient HISTORY OF PRESENT ILLNESS HISTORY OF PRESENT ILLNESS 86 year old male with a NSTEMI, CABG, and HTN history who presented to the ER on 10/09/2016 with hypertensive urgency and SBP of 217 POA. Also with persistent headache. 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 BP has subsequently improved during hospital stay and is now down in the 130s systolically and consistent with his most recent office visit. Denies chest pain and dyspnea, though then mentions occasional brief sharp pain in left chest which he treats with SL NTG. Also with complaints of fatigue. Office records indicate intolerance to metoprolol due to erectile dysfunction, imdur due to headache and could not afford Ranexa. Troponin levels not consistent with ACS X 3; EKG without acute changes and with RBBB. Cr was 1.6 POA. Reason for Visit: HTN PAST MEDICAL HISTORY Cardiovascular: CAD (with CABG 04/12/2016 with RAY to LAD; PALAK to OM1), HTN, NC (NSTEMI; 03/2016), Hyperlipidemia Pulmonary: No pertinent hx CENTRAL NERVOUS SYSTEM: Other (chronic headaches) GI: GERD Heme/Onc: No pertinent hx Hepatobiliary: No pertinent hx Psych: No pertinent hx Musculoskeletal: Osteoarthritis Infectious disease: No pertinent hx ENT: No pertinent hx, Other (glaucoma, 6th nerve palsy) Renal/: Chronic renal insuff, Benign prostatic enlarg. Endocrine: No pertinent hx Dermatology: No pertinent hx PAST SURGICAL HISTORY Past Surgical History: Other (bacl surgery) FAMILY HISTORY Family History: Coronary Artery Disease SOCIAL HISTORY Smoke: Quit ALCOHOL: none Drugs: None Lives: with Family CURRENT MEDICATIONS CURRENT MEDICATIONS Current Medications Medications (Trade) Dose Ordered Sig/Bibi Route PRN Reason Start Time Stop Time Status Last Admin Dose Admin Atorvastatin Calcium (Lipitor) 40 mg HS PO 10/13/16 21:00 10/13/16 21:22 Gabapentin (Neurontin) 100 mg HS PO 10/13/16 21:00 10/13/16 21:22 Latanoprost (Xalatan) 1 drop HS OU 10/13/16 21:00 10/13/16 21:24 ALLERGIES ALLERGIES: Coded Allergies: codeine (Verified Adverse Reaction, Intermediate, doesnt like the way it makes him feel, 12/19/15) ROS Review of System 14 point review completed with pertinent positives in HPI PHYSICAL EXAM General: Alert, Oriented X3, Cooperative, No acute distress HEENT: Atraumatic, PERRLA Lungs: Other (crackles right base; otherwise clear) Heart: Regular rate, Normal S1, Normal S2, No murmurs, Other (no carotid bruits ; tele: SR/ST) Abdomen: Normal bowel sounds, Soft, No tenderness Extremities: No edema, Normal pulses Skin: No rashes Neuro: Normal speech Psych/Mental Status: Mental status NL, Mood NL MUSCULOSKELETAL: Osteoarthritic changes both hands VITALS VITALS Vital Signs Date Time Temp Pulse Resp B/P Pulse Ox O2 Delivery O2 Flow Rate FiO2 10/14/16 08:33 84 132/84 10/14/16 07:36 97.9 20 98 Room Air 97.9 LABS Lab: Laboratory Tests Test 10/13/16 15:15 10/13/16 21:10 Troponin I Quantitative 0.027ng/mL (0.000-0.055) 0.038ng/mL (0.000-0.055) IMAGES IMAGES 10/09/2016: CT head: There is mild cerebral atrophy. The ventricles are within normal limits in size. There is no shift of the midline structures. There is no evidence of acute intracranial hemorrhage or mass effect. Several faint bilateral deep white matter lucencies are noted compatible with chronic ischemic change. There is calcific plaquing of the distal internal carotid arteries. IMPRESSION: 1. Chronic findings as described above. 2. No acute intracranial abnormality is detected. EKG EKG 10/09/2015: no acute changes; RBBB ECHOCARDIOGRAM ECHOCARDIOGRAM 09/09/2016: TTE: <Conclusion> Left ventricle systolic function is mildly impaired. The Ejection Fraction is 45 -50%. There is global hypokinesis of the left ventricle. Doppler and Color Flow revealed mild mitral regurgitation. Doppler and Color Flow revealed moderate tricuspid regurgitation. There is moderate pulmonary hypertension. The PA pressure was estimated at 47 mmHg. HEART CATH HEART CATH 03/2016: cath prior to CAB. Elevated left sided filling pressures. 2. Two vessel CAD with heavy thrombus burden in the Lcx. ASSESSMENT/PLAN ASSESSMENT/PLAN 1. malignant HTN now controlled continue valsartan recommend limiting Na in diet - has chips at bedside 2. chest pain, atypical no acute changes in EKG and troponin levels not consistent with AMI suspect related to RAY harvest for CABG 3. ? depressed; ? related to post op CABG and visual disturbance discussed going to [facility] at least 3 x/week to exercise may benefit from anti-depressive -- if he will take 4. CAD with previous CABG continue ARB intolerant to BB, nitrates, Ranexa recent echo with low normal LV function of 45-50% 5. Hyperlipidemia continue statin therapy 6. 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 PIERCE; DISCHARGE WITH CLONIDINE 0.1 MG PRN SBP > 160; #10; NO REFILLS PATIENT, AND DAUGHTER ADVISED TO KEEP A LOG OF SYMPTOMS, BP READINGS AND TIME HE TAKES CLONIDINE IF NEEDED; RETURN TO OFFICE ON 10/25/2016 FOR F/U APPT Problems: DARRIAN PIERCE MD 10/15/16 0815: CARDIAC CONSULT ALLERGIES ALLERGIES: Coded Allergies: codeine (Verified Adverse Reaction, Intermediate, doesnt like the way it makes him feel, 12/19/15) ASSESSMENT/PLAN ASSESSMENT/PLAN Late entry for 10/14/2016. Pt. seen and examined. Agree with above [facility] note. Pt. well known to me. Labile BP. Etiology unclear. No significant CV pain. Normal Cardiac exam. Euvolemic. Ok to DC with close f/u in the office. Thanks for consultation. Problems: DOMI HELMS APRN Oct 14, 2016 11:16 DARRIAN PIERCE MD Oct 15, 2016 08:15
[2016-10-19] MEDS ORDERED: ASPIRIN 325 MG TABLET PO SCH ×2 (09:00)
== END 2016-10-14 14:20 | disposition home or self-care (01) | DRG 304 ==
LOC: ER 19:20 → 5 SOUTH 20:02
PROVIDERS: ADMIT Internal Medicine; ATTEND Internal Medicine
DX: I16.0 Hypertensive urgency (principal); N17.0 Acute kidney failure with tubular necrosis; E78.5 Hyperlipidemia, unspecified; E78.00 Pure hypercholesterolemia, unspecified; E83.52 Hypercalcemia; H40.9 Unspecified glaucoma; R51 Headache; I25.10 Atherosclerotic heart disease of native coronary artery without angina pectoris; I27.2 Other secondary pulmonary hypertension; F32.9 Major depressive disorder, single episode, unspecified; M19.90 Unspecified osteoarthritis, unspecified site; M54.5 Low back pain; K21.9 Gastro-esophageal reflux disease without esophagitis; I12.9 Hypertensive chronic kidney disease with stage 1 through stage 4 chronic kidney disease, or unspecified chronic kidney disease; N18.9 Chronic kidney disease, unspecified; N40.0 Benign prostatic hyperplasia without lower urinary tract symptoms; R07.89 Other chest pain; H49.20 Sixth [abducent] nerve palsy, unspecified eye; Z82.49 Family history of ischemic heart disease and other diseases of the circulatory system; Z86.718 Personal history of other venous thrombosis and embolism; Z91.19 Patient's noncompliance with other medical treatment and regimen; Z95.1 Presence of aortocoronary bypass graft; Z88.5 Allergy status to narcotic agent; I25.2 Old myocardial infarction; Z87.891 Personal history of nicotine dependence
CPT/HCPCS: 36415; 80048; 81001; 84484; 85027; 87086; 93005; 96374; J0360; J2270; J2405; J3010; J7030; Q0177; 99285-25

== ENCOUNTER 2020-06-01 11:27 | Observation (INO) | payer MEDICARE ==
[~2020-06-01] VITALS: Ht 180.3 cm; Wt 67.1 kg
[~2020-06-01 11:27] MED LIST changes: +AMLO-187 PO; -AMLO10TA2 PO; -ASPI325T4 PO; +ASPI325T8 PO; +ATOR40TA59 PO; +GABA-585 PO; -HYDR-2666 PO; +HYDR-2761 PO; +METO-239 PO; -METO25TA9 PO; +OMEP40CA45 PO; -OMEP40CA5 PO; +OXYM15MI4 NS; +VALS160T3 PO
[2020-06-01] MEDS ORDERED: MIDAZOLAM HCL/PF 2 MG/2 ML VIAL. ONE (11:29)
[2020-06-01] MEDS ORDERED: fentaNYL PF VIAL 100 MCG/2 ML VIAL ONE (11:29)
[2020-06-01] MEDS ORDERED: IODIXANOL 320 MG/ML 100 ML VIAL. ONE (11:30)
[2020-06-01] MEDS ORDERED: LIDOCAINE 1% Multi-Dose 20 ML VIAL. ONE (11:30)
--- NOTE | 2020-06-01 11:37 | PHYS DOC ---
Past Medical History Past Medical History: Arthritis, GERD, Glaucoma, High Cholesterol, Hypert ension, SD Past Surgical History: Other Additional Past Surgical Histo: back surgery, CABG in march 2016 Smoking Status: Never Smoker Alcohol Use: None Drug Use: None General Adult EDM: Chief Complaint: CHEST PAIN HPI: HPI: Patient is a 89 year old male with history of coronary disease, was brought here by EMS from home due to substernal chest pain that started yesterday off and on. Patient was given nitroglycerin and aspirin by EMS on route. Patient said he feels much better after taking nitroglycerin. 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 Patient denies any cough or fever, no abdominal pain, no nausea vomiting. Review of Systems: Review of Systems: Constitutional: Denies fever or chills. [] Eyes: Denies change in visual acuity. [] HENT: Denies nasal congestion or sore throat. [] Respiratory: Denies cough or shortness of breath. [] Cardiovascular: Positive for chest pain GI: Denies abdominal pain, nausea, vomiting, bloody stools or diarrhea. [] : Denies dysuria. [] Musculoskeletal: Denies back pain or joint pain. [] Integument: Denies rash. [] Neurologic: Denies headache, focal weakness or sensory changes. [] Endocrine: Denies polyuria or polydipsia. [] Lymphatic: Denies swollen glands. [] Psychiatric: Denies depression or anxiety. [] Heart Score: HEART Score for Chest Pain: HEART Score for Chest Pain Response (Comments) Value History Moderately Suspicious 1 ECG Nonspecific Repolarizatio 1 Age > 65 2 Risk Factors >3 Risk Factors or Hx CAD 2 Troponin < Normal Limit 0 Total 6 Risk Factors: Risk Factors: DM, Current or recent (<one month) smoker, HTN, HLP, family history of CAD, obesity. Risk Scores: Score 0 - 3: 2.5% MACE over next 6 weeks - Discharge Home Score 4 - 6: 20.3% MACE over next 6 weeks - Admit for Clinical Observation Score 7 - 10: 72.7% MACE over next 6 weeks - Early Invasive Strategies Current Medications: Current Medications Medications (Trade) Dose Ordered Sig/Bibi Start Time Stop Time Status Last Admin Dose Admin Fentanyl Citrate (Fentanyl 2ml Vial) 100 mcg STK-MED ONCE 06/01/20 11:29 06/01/20 11:30 DC Heparin Sodium/ Sodium Chloride 1,000 ml @ As Directed STK-MED ONCE 06/01/20 11:30 06/01/20 11:30 DC Iodixanol (Visipaque 320) 100 ml STK-MED ONCE 06/01/20 11:30 06/01/20 11:30 DC Lidocaine HCl (Lidocaine 1% 20ml Vial) 20 ml STK-MED ONCE 06/01/20 11:30 06/01/20 11:30 DC Midazolam HCl (Versed) 2 mg STK-MED ONCE 06/01/20 11:29 06/01/20 11:30 DC Allergies: Allergies: Allergies Coded Allergies Type Severity Reaction Last Updated Verified codeine Adverse Reaction Intermediate doesnt like the way it makes him feel 12/19/15 Yes Physical Exam: PE: Constitutional: Well developed, well nourished, no acute distress, non-toxic appearance. [] HENT: Normocephalic, atraumatic, bilateral external ears normal, oropharynx moist, no oral exudates, nose normal. [] Eyes: PERRLA, EOMI, conjunctiva normal, no discharge. [] Neck: Normal range of motion, no tenderness, supple, no stridor. [] Cardiovascular:Heart rate regular rhythm, no murmur [] Lungs & Thorax: Bilateral breath sounds clear to auscultation [] Abdomen: Bowel sounds normal, soft, no tenderness, no masses, no pulsatile masses. [] Skin: Warm, dry, no erythema, no rash. [] Back: No tenderness, no CVA tenderness. [] Extremities: No tenderness, no cyanosis, no clubbing, ROM intact, no edema. [] Neurologic: Alert and oriented X 3, normal motor function, normal sensory function, no focal deficits noted. [] Psychologic: Affect normal, judgement normal, mood normal. [] Current Patient Data: Labs: Laboratory Tests Test 06/01/20 11:38 White Blood Count 11.5 x10^3/uL Red Blood Count 5.01 x10^6/uL Hemoglobin 14.6 g/dL Hematocrit 43.3 % Mean Corpuscular Volume 86 fL Mean Corpuscular Hemoglobin 29 pg Mean Corpuscular Hemoglobin Concent 34 g/dL Red Cell Distribution Width 14.7 % Platelet Count 187 x10^3/uL Neutrophils (%) (Auto) 83 % Lymphocytes (%) (Auto) 9 % Monocytes (%) (Auto) 7 % Eosinophils (%) (Auto) 0 % Basophils (%) (Auto) 1 % Neutrophils # (Auto) 9.6 x10^3/uL Lymphocytes # (Auto) 1.1 x10^3/uL Monocytes # (Auto) 0.8 x10^3/uL Eosinophils # (Auto) 0.0 x10^3/uL Basophils # (Auto) 0.1 x10^3/uL Prothrombin Time 15.5 SEC Prothromb Time International Ratio 1.3 Activated Partial Thromboplast Time 37 SEC Sodium Level 139 mmol/L Potassium Level 4.1 mmol/L Chloride Level 102 mmol/L Carbon Dioxide Level 27 mmol/L Anion Gap 10 Blood Urea Nitrogen 23 mg/dL Creatinine 1.6 mg/dL Estimated GFR (Cockcroft-Gault) 49.6 BUN/Creatinine Ratio 14 Glucose Level 116 mg/dL Calcium Level 9.7 mg/dL Magnesium Level 2.2 mg/dL Total Bilirubin 0.8 mg/dL Aspartate Amino Transf (AST/SGOT) 19 U/L Alanine Aminotransferase (ALT/SGPT) 14 U/L Alkaline Phosphatase 45 U/L Troponin I Quantitative < 0.017 ng/mL [id number] Natriuretic Peptide 250 pg/mL Total Protein 7.3 g/dL Albumin 3.7 g/dL Albumin/Globulin Ratio 1.0 Lipase 64 U/L Current Medications Medications (Trade) Dose Ordered Sig/Bibi Route PRN Reason Start Time Stop Time Status Last Admin Dose Admin Fentanyl Citrate (Fentanyl 2ml Vial) 100 mcg STK-MED ONCE .ROUTE 06/01/20 11:29 06/01/20 11:30 DC Midazolam HCl (Versed) 2 mg STK-MED ONCE .ROUTE 06/01/20 11:29 06/01/20 11:30 DC Iodixanol (Visipaque 320) 100 ml STK-MED ONCE .ROUTE 06/01/20 11:30 06/01/20 11:30 DC Lidocaine HCl (Lidocaine 1% 20ml Vial) 20 ml STK-MED ONCE .ROUTE 06/01/20 11:30 06/01/20 11:30 DC Heparin Sodium/ Sodium Chloride 1,000 ml @ As Directed STK-MED ONCE .ROUTE 06/01/20 11:30 06/01/20 11:30 DC EKG: EKG: EKG was done at 1130, heart rate of 86 bpm, sinus rhythm, no ST segment elevation. Right bundle branch block. No change from previous EKG. Radiology/Procedures: Radiology/Procedures: [][facility] [address] [place] [address] IMAGING REPORT Signed PATIENT: AMALIA SOTELO ACCOUNT: [id number] : 1930 LOCATION: ER AGE: 89 SEX: M EXAM STATUS: REG ER ORD. PHYSICIAN: ADAN HERNANDEZ DO REASON: chest pain,ALSO CT PROCEDURE: PORTABLE CHEST 1V PORTABLE CHEST 1V History: Reason: chest pain,/ Spl. Instructions: / History: Comparison: None. Findings: No consolidation or pleural effusion. Normal heart size. No pneumothorax. Calcified mediastinal and hilar lymph nodes as well as right basilar pulmonary nodule, likely prior granulomatous disease. Impression: 1. No acute cardiopulmonary process. Electronically signed by: Devon Reyes DO (06/01/2020 12:13 PM) [id number] DICTATED and SIGNED BY: DEVON REYES DO DATE: 06/01/20 121 Course & Med Decision Making: Course & Med Decision Making Pertinent Labs and Imaging studies reviewed. (See chart for details) Patient is an 89-year-old male with history of coronary disease, presented with chest pain, EKG did not show any acute problem, his LAB WORKS did not show any acute problem so far. Patient will be admitted to hospital for further evaluation and treatment due to his risk factors. Dragon Disclaimer: Dragon Disclaimer: This electronic medical record was generated, in whole or in part, using a voice recognition dictation system. Departure Departure Impression: Primary Impression: Chest pain Disposition: ADMITTED INPT THIS HOSP Admitting Physician: LALA (Dr. Bergman) Condition: IMPROVED Referrals: AMPARO GASPAR (PCP) ADAN HERNANDEZ DO Jun 01, 2020 11:37
[2020-06-01 11:59] LABS: BASO # 0.1 x10^3/uL (0.0-0.2); BASO % 1 % (0-3); EOS % 0 % (0-3); HEMATOCRIT 43.3 % (39.0-53.0); HEMOGLOBIN 14.6 g/dL (13.0-17.5); LYMPH # 1.1 x10^3/uL (1.0-4.8); LYMPH % 9 % (24-48); MEAN CORPUSCULAR HEMOGLOBIN 29 pg (25-35); MEAN CORPUSCULAR HGB CONC 34 g/dL (31-37); MEAN CORPUSCULAR VOLUME 86 fL (79-100); MONO # 0.8 x10^3/uL (0.0-1.1); MONO % 7 % (0-9); NEUT # 9.6 x10^3/uL (1.8-7.7); NEUT % 83 % (31-73); PLATELET COUNT 187 x10^3/uL (140-400); RED BLOOD COUNT 5.01 x10^6/uL (4.30-5.70); RED CELL DISTRIBUTION WIDTH 14.7 % (11.5-14.5); WHITE BLOOD COUNT 11.5 x10^3/uL (4.0-11.0)
[2020-06-01 12:06] LABS: CALCIUM 9.7 mg/dL (8.5-10.1); CREATININE 1.6 mg/dL (0.7-1.3); GFR 49.6; POTASSIUM 4.1 mmol/L (3.5-5.1)
[2020-06-01 12:11] LABS: ALBUMIN 3.7 g/dL (3.4-5.0); MAGNESIUM 2.2 mg/dL (1.8-2.4); TOTAL BILIRUBIN 0.8 mg/dL (0.2-1.0); TOTAL PROTEIN 7.3 g/dL (6.4-8.2)
[2020-06-01 12:12] LABS: PROTHROMBIN TIME PATIENT 15.5 SEC (11.7-14.0)
--- NOTE | 2020-06-01 12:16 | RAD ---
PORTABLE CHEST 1V History: Reason: chest pain,/ Spl. Instructions: / History: Comparison: None. Findings: No consolidation or pleural effusion. Normal heart size. No pneumothorax. Calcified mediastinal and hilar lymph nodes as well as right basilar pulmonary nodule, likely prior granulomatous disease. Impression: 1. No acute cardiopulmonary process. Electronically signed by: Devon Reyes DO (06/01/2020 12:13 PM) [id number]
--- NOTE | 2020-06-01 12:56 | PDOC2 ---
CARDIOLOGY CONSULT NOTE DATE OF SERVICE: DATE: 06/01/20 TIME: 12:53 CHIEF COMPLAINT: Chest pain, stress HPI: Mr. Garrison is a pleasant 89-year-old man who is well-known to our service who presented to the ER in the setting of worsening chest pressure. His had previously called us for consideration of an expedited office visit and he was due to see us in the office tomorrow. Unfortunately, it appears that he had w orsening chest pain and was referred to the hospital. Upon arrival to the hospital he had normal vital signs, EKG that was unremarkable for any acute processes and initial troponin was negative. He has been admitted for further evaluation and treatment. PMHX: 1. Coronary artery disease status post two-vessel bypass approximately 4 years ago 2. Hypertension 3. Dyslipidemia SOCHX: He is . 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 FAMHX: Noncontributory CURRENT MEDS: Cardiovascular medications have not yet been reconciled. ALLERGIES: Allergies Coded Allergies Type Severity Reaction Last Updated Verified codeine Adverse Reaction Intermediate doesnt like the way it makes him feel 12/19/15 Yes ROS: Negative unless otherwise mentioned above in HPI. He does endorse increased stress due to his 's illness. PHYSICAL EXAM: Vital Signs/I&O: Vital Signs Date Time Temp Pulse Resp B/P (MAP) Pulse Ox O2 Delivery O2 Flow Rate FiO2 06/01/20 11:27 99.1 86 12 119/66 (83) 100 Room Air 99.1 Physical Exam: The patient appeared well nourished and normally developed. Head exam is unremarkable. No scleral icterus or corneal arcus noted. Neck is without jugular venous distension, thyromegaly, or carotid bruits. Carotid upstrokes are brisk bilaterally. Lungs are clear to auscultation and percussion. Cardiac exam reveals the PMI to be normally sized and situated. Rhythm is regular. First and second heart sounds normal. No murmurs, rubs or gallops. Abdominal exam reveals normal bowel sounds, no masses, no organomegaly and no aortic enlargement. Extremities are nonedematous and both femoral and pedal pulses are normal. Msk: No traumua Neuro: No focal deficits DIAGNOSTIC TESTING: Troponin negative, EKG unremarkable Lab Laboratory Tests Test 06/01/20 11:38 White Blood Count 11.5 x10^3/uL (4.0-11.0) H Red Blood Count 5.01 x10^6/uL (4.30-5.70) Hemoglobin 14.6 g/dL (13.0-17.5) Hematocrit 43.3 % (39.0-53.0) Mean Corpuscular Volume 86 fL (79-100) Mean Corpuscular Hemoglobin 29 pg (25-35) Mean Corpuscular Hemoglobin Concent 34 g/dL (31-37) Red Cell Distribution Width 14.7 % (11.5-14.5) H Platelet Count 187 x10^3/uL (140-400) Neutrophils (%) (Auto) 83 % (31-73) H Lymphocytes (%) (Auto) 9 % (24-48) L Monocytes (%) (Auto) 7 % (0-9) Eosinophils (%) (Auto) 0 % (0-3) Basophils (%) (Auto) 1 % (0-3) Neutrophils # (Auto) 9.6 x10^3/uL (1.8-7.7) H Lymphocytes # (Auto) 1.1 x10^3/uL (1.0-4.8) Monocytes # (Auto) 0.8 x10^3/uL (0.0-1.1) Eosinophils # (Auto) 0.0 x10^3/uL (0.0-0.7) Basophils # (Auto) 0.1 x10^3/uL (0.0-0.2) Prothrombin Time 15.5 SEC (11.7-14.0) H Prothromb Time International Ratio 1.3 (0.8-1.1) H Activated Partial Thromboplast Time 37 SEC (24-38) Sodium Level 139 mmol/L (136-145) Potassium Level 4.1 mmol/L (3.5-5.1) Chloride Level 102 mmol/L (98-107) Carbon Dioxide Level 27 mmol/L (21-32) Anion Gap 10 (6-14) Blood Urea Nitrogen 23 mg/dL (8-26) Creatinine 1.6 mg/dL (0.7-1.3) H Estimated GFR (Cockcroft-Gault) 49.6 BUN/Creatinine Ratio 14 (6-20) Glucose Level 116 mg/dL (70-99) H Calcium Level 9.7 mg/dL (8.5-10.1) Total Bilirubin 0.8 mg/dL (0.2-1.0) Aspartate Amino Transf (AST/SGOT) 19 U/L (15-37) Alkaline Phosphatase 45 U/L (46-116) L Total Protein 7.3 g/dL (6.4-8.2) Albumin 3.7 g/dL (3.4-5.0) Albumin/Globulin Ratio 1.0 (1.0-1.7) Lipase 64 U/L (73-393) L Laboratory Tests 06/01/20 11:38 ASSESSMENT: 1. Atypical chest pain in the setting of known coronary disease 2. Hypertension currently well controlled 3. Chronic psychosocial stressors 4. Chronic kidney disease with a creatinine of 1.6, cannot rule out acute exacerbation PLAN: 1. We will plan for admission to the hospital and obtain an echocardiogram and proceed further accordingly depending on his symptomatology and biomarkers. DARRIAN PIERCE MD Jun 01, 2020 12:56
[2020-06-01] MEDS ORDERED: ONDANSETRON PF 4 MG/2 ML VIAL. IV PRN ×2 (13:00→17:45)
--- NOTE | 2020-06-01 13:00 | PDOC1 ---
History and Physical Date of Admission Date of Admission DATE: 06/01/20 TIME: 12:59 Identification/Chief Complaint Chief Complaint seen in er with unstable angina, 89 year old male with history of coronary disease, was brought here by EMS from home due to substernal chest pain that started yesterday off and on. Patient was given nitroglycerin and aspirin by EMS on route. Patient said he feels much better after taking nitroglycerin. 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 Patient denies any cough or fever, no abdominal pain, no nausea vomiting. bp very high on arrival Past Medical History Past Medical History Past Medical History Past Medical History: Arthritis, GERD, Glaucoma, High Cholesterol, Hypertension, NM Past Surgical History: Other Additional Past Surgical Histo: back surgery, CABG in march 2016 Smoking Status: Never Smoker Alcohol Use: None Drug Use: None FHX HTN Cardiovascular: CAD, HTN, NM, Hyperlipidemia Pulmonary: No pertinent hx CENTRAL NERVOUS SYSTEM: Other GI: GERD Heme/Onc: No pertinent hx Hepatobiliary: No pertinent hx Psych: No pertinent hx Musculoskeletal: Osteoarthritis Rheumatologic: No pertinent hx Infectious disease: No pertinent hx Renal/: Chronic renal insuff, Benign prostatic enlarg. Endocrine: No pertinent hx Past Surgical History Past Surgical History: Other Family History Family History: Coronary Artery Disease, High Cholestrol, Hypertension Social History Smoke: No ALCOHOL: none Drugs: None Current Problem List Problem List Problems Medical Problems: (1) Chest pain Status: Acute Current Medications Current Medications Current Medications Fentanyl Citrate (Fentanyl 2ml Vial) 100 mcg STK-MED ONCE .ROUTE ; Start 06/01/20 at 11:29; Stop 06/01/20 at 11:30; Status DC Midazolam HCl (Versed) 2 mg STK-MED ONCE .ROUTE ; Start 06/01/20 at 11:29; Stop 06/01/20 at 11:30; Status DC Iodixanol (Visipaque 320) 100 ml STK-MED ONCE .ROUTE ; Start 06/01/20 at 11:30; Stop 06/01/20 at 11:30; Status DC Lidocaine HCl (Lidocaine 1% 20ml Vial) 20 ml STK-MED ONCE .ROUTE ; Start 06/01/20 at 11:30; Stop 06/01/20 at 11:30; Status DC Heparin Sodium/ Sodium Chloride 1,000 ml @ As Directed STK-MED ONCE .ROUTE ; Start 06/01/20 at 11:30; Stop 06/01/20 at 11:30; Status DC Ondansetron HCl (Zofran) 4 mg PRN Q8HRS PRN IV NAUSEA/VOMITING; Start 06/01/20 at 13:00; Stop 06/02/20 at 12:59 Active Scripts Active Reported Afrin (Oxymetazoline Hcl) 15 Ml Mist 15 Ml NS HS PRN Atorvastatin Calcium 40 Mg Tablet 1 Tab PO HS Diovan (Valsartan) 160 Mg Tablet 160 Mg PO DAILY Gabapentin 100 Mg Capsule 100 Mg PO HS Aspirin 325 Mg Tablet 1 Tab PO WEEKLY Furosemide 40 Mg Tablet 20 Mg PO PRN DAILY PRN 7 Days Hydroxyzine Hcl 25 Mg Tablet 1 Tab PO BID Latanoprost 2.5 Ml Drops 1 Drop OP HS Alphagan P (Brimonidine Tartrate) 5 Ml Drops 1 Drop EACHEYE BID Timolol Maleate 10 Ml Drops 1 Drop EACHEYE DAILYWBKFT Omeprazole 40 Mg Capsule.dr 40 Mg PO DAILY Allergies Allergies: Coded Allergies: codeine (Verified Adverse Reaction, Intermediate, doesnt like the way it makes him feel, 12/19/15) ROS Review of System Constitutional: Denies fever or chills. [] Eyes: Denies change in visual acuity. [] HENT: Denies nasal congestion or sore throat. [] Respiratory: Denies cough or shortness of breath. [] Cardiovascular: Positive for chest pain GI: Denies abdominal pain, nausea, vomiting, bloody stools or diarrhea. [] : Denies dysuria. [] Musculoskeletal: Denies back pain or joint pain. [] Integument: Denies rash. [] Neurologic: Denies headache, focal weakness or sensory changes. [] Endocrine: Denies polyuria or polydipsia. [] Lymphatic: Denies swollen glands. [] Psychiatric: Denies depression or anxiety. [] 14 pt ros otherwise neg Physical Exam Physical Exam Well developed, well nourished, no acute distress, non-toxic appearance. [] HENT: Normocephalic, atraumatic, bilateral external ears normal, oropharynx moist, no oral exudates, nose normal. [] Eyes: PERRLA, EOMI, conjunctiva normal, no discharge. [] Neck: Normal range of motion, no tenderness, supple, no stridor. [] Cardiovascular:Heart rate regular rhythm, no murmur [] Lungs & Thorax: Bilateral breath sounds clear to auscultation [] Abdomen: Bowel sounds normal, soft, no tenderness, no masses, no pulsatile masses. [] Skin: Warm, dry, no erythema, no rash. [] Back: No tenderness, no CVA tenderness. [] Extremities: No tenderness, no cyanosis, no clubbing, ROM intact, no edema. [] Neurologic: Alert and oriented X 3, normal motor function, normal sensory function, no focal deficits noted. [] Psychologic: Affect normal, judgment normal, mood normal. [] General: Alert, Oriented X3, Cooperative HEENT: Atraumatic, EOMI, Mucous membr. moist/pink Lungs: Clear to auscultation, Normal air movement Breasts: Not examined Abdomen: Normal bowel sounds, Soft Rectal Exam: not examined Extremities: No cyanosis Neuro: Normal speech, Sensation intact, Cranial nerves 3-12 NL Psych/Mental Status: Mental status NL, Mood NL Vitals Vitals Vital Signs Date Time Temp Pulse Resp B/P (MAP) Pulse Ox O2 Delivery O2 Flow Rate FiO2 06/01/20 11:27 99.1 86 12 119/66 (83) 100 Room Air 99.1 Labs Labs Laboratory Tests Test 06/01/20 11:38 White Blood Count 11.5 x10^3/uL (4.0-11.0) Red Blood Count 5.01 x10^6/uL (4.30-5.70) Hemoglobin 14.6 g/dL (13.0-17.5) Hematocrit 43.3 % (39.0-53.0) Mean Corpuscular Volume 86 fL (79-100) Mean Corpuscular Hemoglobin 29 pg (25-35) Mean Corpuscular Hemoglobin Concent 34 g/dL (31-37) Red Cell Distribution Width 14.7 % (11.5-14.5) Platelet Count 187 x10^3/uL (140-400) Neutrophils (%) (Auto) 83 % (31-73) Lymphocytes (%) (Auto) 9 % (24-48) Monocytes (%) (Auto) 7 % (0-9) Eosinophils (%) (Auto) 0 % (0-3) Basophils (%) (Auto) 1 % (0-3) Neutrophils # (Auto) 9.6 x10^3/uL (1.8-7.7) Lymphocytes # (Auto) 1.1 x10^3/uL (1.0-4.8) Monocytes # (Auto) 0.8 x10^3/uL (0.0-1.1) Eosinophils # (Auto) 0.0 x10^3/uL (0.0-0.7) Basophils # (Auto) 0.1 x10^3/uL (0.0-0.2) Prothrombin Time 15.5 SEC (11.7-14.0) Prothromb Time International Ratio 1.3 (0.8-1.1) Activated Partial Thromboplast Time 37 SEC (24-38) Sodium Level 139 mmol/L (136-145) Potassium Level 4.1 mmol/L (3.5-5.1) Chloride Level 102 mmol/L (98-107) Carbon Dioxide Level 27 mmol/L (21-32) Anion Gap 10 (6-14) Blood Urea Nitrogen 23 mg/dL (8-26) Creatinine 1.6 mg/dL (0.7-1.3) Estimated GFR (Cockcroft-Gault) 49.6 BUN/Creatinine Ratio 14 (6-20) Glucose Level 116 mg/dL (70-99) Calcium Level 9.7 mg/dL (8.5-10.1) Magnesium Level 2.2 mg/dL (1.8-2.4) Total Bilirubin 0.8 mg/dL (0.2-1.0) Aspartate Amino Transf (AST/SGOT) 19 U/L (15-37) Alanine Aminotransferase (ALT/SGPT) 14 U/L (16-63) Alkaline Phosphatase 45 U/L (46-116) Troponin I Quantitative < 0.017 ng/mL (0.000-0.055) RY-Qes-A-Type Natriuretic Peptide 250 pg/mL (0-449) Total Protein 7.3 g/dL (6.4-8.2) Albumin 3.7 g/dL (3.4-5.0) Albumin/Globulin Ratio 1.0 (1.0-1.7) Lipase 64 U/L (73-393) Laboratory Tests Test 06/01/20 11:38 White Blood Count 11.5 x10^3/uL (4.0-11.0) Red Blood Count 5.01 x10^6/uL (4.30-5.70) Hemoglobin 14.6 g/dL (13.0-17.5) Hematocrit 43.3 % (39.0-53.0) Mean Corpuscular Volume 86 fL (79-100) Mean Corpuscular Hemoglobin 29 pg (25-35) Mean Corpuscular Hemoglobin Concent 34 g/dL (31-37) Red Cell Distribution Width 14.7 % (11.5-14.5) Platelet Count 187 x10^3/uL (140-400) Neutrophils (%) (Auto) 83 % (31-73) Lymphocytes (%) (Auto) 9 % (24-48) Monocytes (%) (Auto) 7 % (0-9) Eosinophils (%) (Auto) 0 % (0-3) Basophils (%) (Auto) 1 % (0-3) Neutrophils # (Auto) 9.6 x10^3/uL (1.8-7.7) Lymphocytes # (Auto) 1.1 x10^3/uL (1.0-4.8) Monocytes # (Auto) 0.8 x10^3/uL (0.0-1.1) Eosinophils # (Auto) 0.0 x10^3/uL (0.0-0.7) Basophils # (Auto) 0.1 x10^3/uL (0.0-0.2) Prothrombin Time 15.5 SEC (11.7-14.0) Prothromb Time International Ratio 1.3 (0.8-1.1) Activated Partial Thromboplast Time 37 SEC (24-38) Sodium Level 139 mmol/L (136-145) Potassium Level 4.1 mmol/L (3.5-5.1) Chloride Level 102 mmol/L (98-107) Carbon Dioxide Level 27 mmol/L (21-32) Anion Gap 10 (6-14) Blood Urea Nitrogen 23 mg/dL (8-26) Creatinine 1.6 mg/dL (0.7-1.3) Estimated GFR (Cockcroft-Gault) 49.6 BUN/Creatinine Ratio 14 (6-20) Glucose Level 116 mg/dL (70-99) Calcium Level 9.7 mg/dL (8.5-10.1) Magnesium Level 2.2 mg/dL (1.8-2.4) Total Bilirubin 0.8 mg/dL (0.2-1.0) Aspartate Amino Transf (AST/SGOT) 19 U/L (15-37) Alanine Aminotransferase (ALT/SGPT) 14 U/L (16-63) Alkaline Phosphatase 45 U/L (46-116) Troponin I Quantitative < 0.017 ng/mL (0.000-0.055) BS-Yru-O-Type Natriuretic Peptide 250 pg/mL (0-449) Total Protein 7.3 g/dL (6.4-8.2) Albumin 3.7 g/dL (3.4-5.0) Albumin/Globulin Ratio 1.0 (1.0-1.7) Lipase 64 U/L (73-393) Images Images Pulmonary Valve PV Peak Velocity 72.7cm/s Tricuspid Valve TR P. Velocity 322cm/s TR Peak Gr. 42mmHg Pulmonary Vein S1 Velocity 47.8cm/s D2 Velocity 38.9cm/s PVa duration 55msec LEFT VENTRICLE The left ventricle is normal size. There is normal left ventricular wall thickness. Left ventricle systolic function is mildly impaired. The Ejection Fraction is 45-50%. There is global hypokinesis of the left ventricle. Transmitral Doppler flow pattern is Grade I-abnormal relaxation pattern. RIGHT VENTRICLE The right ventricle is normal size. There is normal right ventricular wall thickness. The right ventricular systolic function is normal. ATRIA The left atrium size is normal. The right atrium size is normal. The interatrial septum is intact with no evidence for an atrial septal defect or patent foramen ovale as noted on 2-D or Doppler imaging. AORTIC VALVE The aortic valve is mildly sclerotic. The aortic valve is trileaflet. Doppler and Color Flow revealed no significant aortic regurgitation. There is no significant aortic valvular stenosis. MITRAL VALVE The mitral valve leaflets are thickened. There is no evidence of mitral valve prolapse. There is no mitral valve stenosis. Doppler and Color Flow revealed mild mitral regurgitation. TRICUSPID VALVE The tricuspid valve is normal in structure and function. Doppler and Color Flow revealed moderate tricuspid regurgitation. There is moderate pulmonary hypertension. The PA pressure was estimated at 47 mmHg. PULMONIC VALVE Doppler and Color Flow revealed mild pulmonic valvular regurgitation. GREAT VESSELS The aortic root is normal in size. The ascending aorta is normal in size. The IVC is normal in size and collapses >50% with inspiration. PERICARDIAL EFFUSION There is no evidence of significant pericardial effusion. Critical Notification Critical Value: No <Conclusion> Left ventricle systolic function is mildly impaired. The Ejection Fraction is 45-50%. There is global hypokinesis of the left ventricle. Doppler and Color Flow revealed mild mitral regurgitation. Doppler and Color Flow revealed moderate tricuspid regurgitation. There is moderate pulmonary hypertension. The PA pressure was estimated at 47 mmHg. DICTATED and SIGNED BY: DARRIAN PIERCE MD DATE: 09/09/16 1219 INDICATION The indication(s) include : non-STEMI (>12 hrs to = 24 hrs), 85-year-old male who is well appearing and appears younger than his stated age presented with chest pain and a troponin elevation. He was taken to the cardiac catheterization laboratory for further evaluation.. CASE TECHNIQUE During this case, Fluoroscopy and low osmolar contrast were used for imaging. PROCEDURE NARRATIVE The patient was brought electively to the cardiac catheterization lab. A timeout was performed confirming the patient's name, date of , procedure, and site of procedure. All necessary personnel were wearing the appropriate protective equipment and radiation monitor devices. After explaining the risks and benefits of the procedure and alternatives, informed consent was obtained. (See nursing notes for medications administered). The right wrist was sterilely prepped and draped in the usual fashion. The right wrist was infiltrated with 1 mL of 2% lidocaine for subcutaneous anesthesia. A 6 Finnish Terumo glide sheath was inserted into the right radial artery without difficulty. Right and left coronary angiography was performed using a 6Fr TIG 4.0 catheter. HEMODYNAMICS: LVEDP 20 mm Hg No gradient on LV to aortic pullback. CORONARY ANGIOGRAPHY: LM is a large caliber vessel with normal angiographic appearance. LAD is a large caliber vessel severe proximal ectasia with a focal mid 70% eccentric stenosis. Ramus is a small caliber vessel with normal angiographic appearance. LCx is a large caliber vessel with proximal ectasia and a 100% occlusion with large thrombus burden and staining. OM1 is a moderate caliber vessel that is proximally occluded, that fills via a large epicardial collateral from the apical LAD. RCA is a large caliber dominant vessel with mild diffuse ectasia. RPDA and RPL are moderate caliber vessels with mild to moderate diffuse irregularities of up to 20%. INTERVENTIONAL TECHNIQUE: PCI OF THE LCX Based upon the angiographic findings and elevated biomarkers, the LCx was felt to be the culprit lesion. Therefore, heparin and aggrostat were administered to achieve an ACT > 200. Through a 6F EBU 4.0 guide catheter, a 0.014'' Terumo run through wire was used to traverse the proximal LCx stenosis. Balloon angioplasty was then performed with a Trek 2.0/12 and 3.0/20 balloons which was unsuccessful due to significant thrombus burden extending from the proximal circumflex. Due to concern for distal embolization, as well as possibility of vessel size mismatch with stenting and possible poor outflow, further intervention was deferred in favor of discussion of CABG versus continued anticoagulation with consideration for repeat angiography in 24 hours. Left ventricular end diastolic pressure was obtained with a pigtail catheter and pullback was performed after left ventriculography. All catheter exchanges and advancements were performed over a guidewire. At case completion the right radial sheath was removed and a Terumo radial band was applied with 13 ml of air. The patient tolerated the procedure well and there were no immediate complications. Conclusion 1. Elevated left sided filling pressures. 2. Two vessel CAD with heavy thrombus burden in the Lcx. Recommendations 1. A thorough discussion was held with the patient and his family with regards to his options including: -Medical mgmt of the LCx with PCI of the LAD -Repeat angiography with aggressive measures such as rheolytic thrombectomy of the Lcx and PCI of the LAD -Two vessel CABG The patient and family understood the risks and benefits of all approaches and ultimately decided to proceed with CABG. -Plan for 2V CABG with Dr. Jaimes in a.m. -Continue heparin and Tirofiban gtt until 4 a.m. 04/12/2016. -Will follow along. DICTATED and SIGNED BY: DARRIAN PIERCE MD DATE: 04/11/16 4829 CC: DARRIAN PIERCE MD; FERNANDA ARENAS Jr, MD; SHILPA WORTHY ~ DPOA REVIEW 18 MIN to patient portal What Is a Power of Nurse Chemical Dependency? A power of doll wigs hackler (POA) is a legal document giving one person (the agent or [id number]) the power to act for another person (the principal). The agent can have broad legal authority or limited authority to make legal decisions about the principal's property, finances or medical care. The power of doll wigs hackler is frequently used in the event of a principal's illness or disability, or when the principal can't be present to sign necessary legal documents for financial transactions. A power of doll wigs hackler can end for a number of reasons, such as when the principal dies, the principal revokes it, a court invalidates it, the principal divorces their spouse, who happens to be the agent, or the agent can no longer carry out the outlined responsibilities. Conventional POAs lapse when the creator becomes incapacitated, but a durable POA remains in force to enable the agent to manage the creators affairs, and a springing POA comes into effect only if and when the creator of the POA becomes incapacitated. A medical or healthcare POA enables an agent to make medical decisions on behalf of an incapacitated person. [employer] A power of doll wigs hackler (POA) is a legal document giving one person, the agent or [id number] the power to act for another person, the principal. The agent can have broad legal authority or limited authority to make decisions about the principal's property, finances or medical care. The power of doll wigs hackler is often used when a principal becomes ill or disabled, or when they can't be present to sign necessary legal documents for financial transactions. Understanding Power of Nurse Chemical Dependency A power of doll wigs hackler should be considered when planning for long-term care. There are different types of POAs that fall under either a general power of doll wigs hackler or limited power of doll wigs hackler. A general power of doll wigs hackler acts on behalf of the principal in any and all matters, as allowed by the state. The agent under a general POA agreement may be authorized to take care of issues such as handling bank accounts, signing checks, selling property and assets like stocks, f A limited power of doll wigs hackler gives the agent the power to act on behalf of the principal in specific matters or events. For example, the limited POA may explicitly state that the agent is only allowed to manage the principal's chcf accounts. A limited POA may also be limited to a specific period of time (e.g., if the principal will be out of the country for, say, two years). Most jessica of doll wigs hackler documents allow an agent to represent the principal in all property and financial matters as long as the principals mental state of mind is good. If a situation occurs where the principal becomes incapable of making decisions for him or herself, the POA agreement would automatically end. However, someone who wants the POA to remain in effect after the persons health deteriorates would need to sign a durable power of doll wigs hackler (DPOA). What is an advance directive? An advance directive is a legal document that says how you want to be cared for if you are unable to make decisions. You can include what medical treatments you would want and who you would trust to make decisions for you. An advance directive can also include other legal documents. A living will is a list of treatment preferences. It can be used to indicate whether you would want cardiopulmonary resuscitation (CPR), tube feedings, a breathing machine, or certain medicines, like antibiotics. The durable power of doll wigs hackler for health care document identifies the person you would want to make medical decisions for you. This person is also called a proxy. Your proxy should be familiar with your values and wishes. How do I get started? You can get advance directive documents for your state from your doctor's office or from http://www.caringinfo.org. Review the forms, and ask your doctor if you have any questions. Pick a person to be your proxy, and talk it over with that person. Comment PORTABLE CHEST 1V History: Reason: chest pain,/ Spl. Instructions: / History: Comparison: None. Findings: No consolidation or pleural effusion. Normal heart size. No pneumothorax. Calcified mediastinal and hilar lymph nodes as well as right basilar pulmonary nodule, likely prior granulomatous disease. Impression: 1. No acute cardiopulmonary process. Electronically signed by: Devon Reyes DO (06/01/2020 12:13 PM) [id number] DICTATED and SIGNED BY: DEVON REYES DO VTE Prophylaxis Ordered VTE Prophylaxis Devices: Yes VTE Pharmacological Prophylaxi: Yes Assessment/Plan Assessment/Plan Impression: Chest pain stress and anxiety CAD with 2 vessel CABG 2V CABG with Dr. Jaimes echo , 2017 Left ventricle systolic function is mildly impaired. The Ejection Fraction is 45-50% global hypokinesis of the left ventricle. moderate tricuspid regurgitation. There is moderate pulmonary hypertension. The PA pressure was estimated at 47 mmHg. glaucoma GERD CKD STAGE 3-4 hypertensive urgency plan ADMITTED cvc bed serial troponin Cardiology consult ECHO home meds CONSULT NEPHROLOGY dvt prophylaxis protonix D/W ER Justifications for Admission Other Justification DIDIER GRIFFIN MD Jun 01, 2020 12:59
[2020-06-01] MEDS ORDERED: ONDANSETRON PF 4 MG/2 ML VIAL. IVP ONE (14:30)
[2020-06-01 16:19] LABS: BILIRUBIN,URINE NEGATIVE (NEG); CLARITY,URINE CLEAR; COLOR,URINE YELLOW; NITRITE,URINE NEGATIVE (NEG); PROTEIN,URINE NEGATIVE (NEG-TRACE)
[2020-06-01 16:23] LABS: BACTERIA,URINE 0 /HPF (0-FEW); RBC,URINE 0 /HPF (0-2); WBC,URINE OCC /HPF (0-4)
[2020-06-01 16:30] VITALS: BP 114/69
[2020-06-01] MEDS ORDERED: AMLO-186 PO (17:00)
[2020-06-01] MEDS ORDERED: MIRT7.5T8 PO (17:00)
[2020-06-01] MEDS ORDERED: HYDR-2759 PO (17:00)
[2020-06-01] MEDS ORDERED: GABA100C6 PO (17:00)
[2020-06-01] MEDS ORDERED: IRBE150T21 PO (17:00)
[2020-06-01] MEDS ORDERED: DULO30CA44 PO (17:00)
[2020-06-01] MEDS ORDERED: ASPI-630 PO (17:01)
[2020-06-01] MEDS ORDERED: FUROSEMIDE 40 MG TABLET. PO PRN (17:30)
[2020-06-01] MEDS ORDERED: guaiFENesin ORAL 200 MG/10 ML LIQUID. PO PRN (17:45)
[2020-06-01] MEDS ORDERED: MAG HYDROX/ALUMINUM HYD/SIMETH 30 ML ORAL.SUSP PO PRN (17:45)
[2020-06-01] MEDS ORDERED: DOCUSATE SODIUM 100 MG CAPSULE. PO PRN (17:45)
[2020-06-01] MEDS ORDERED: ACETAMINOPHEN 325 MG TABLET. PO PRN (17:45)
[2020-06-01] MEDS ORDERED: LORazepam 0.5 MG TABLET PO PRN (17:45)
[2020-06-01] MEDS ORDERED: ALBUTEROL SULFATE 2.5 MG/3 ML NEBU. NEB PRN (17:45)
[2020-06-01] MEDS ORDERED: 0.9 % SODIUM CHLORIDE 10 ML DISP.SYRIN. IV PRN (17:45)
[2020-06-01] MEDS ORDERED: SODIUM PHOSPHATES 19/7GM 133 ML ENEMA. PR PRN (17:45)
[2020-06-01] MEDS ORDERED: ENOXAPARIN 40 MG/0.4 ML SYRINGE. SQ SCH (17:45)
[2020-06-01] MEDS ORDERED: cloNIDine HCL 0.1 MG TABLET PO PRN (17:45)
[2020-06-01] MEDS ORDERED: GABA300C18 PO (17:48)
[2020-06-01] MEDS ORDERED: ENOXAPARIN 30 MG/0.3 ML SYRINGE. SQ SCH (18:00)
[2020-06-01 19:24] VITALS: BP 106/49
[2020-06-01] MEDS: BRIMONIDINE 0.2% OPHTH SOLUTION 5ML BOTTLE. OU SCH (20:57)
[2020-06-01] MEDS ORDERED: GABAPENTIN 100 MG CAPSULE. PO SCH (21:00)
[2020-06-01] MEDS ORDERED: ATORVASTATIN CALCIUM 40 MG TABLET. PO SCH (21:00)
[2020-06-01 22:27] VITALS: BP 99/50
[2020-06-02 02:48] VITALS: BP 114/72
[2020-06-02 07:00] VITALS: BP 122/69
[2020-06-02] MEDS: BRIMONIDINE 0.2% OPHTH SOLUTION 5ML BOTTLE. OU SCH (07:34)
[2020-06-02] MEDS ORDERED: TIMOLOL 0.5% OPHTH SOLUTION 5ML BOTTLE. OU SCH (08:00)
[2020-06-02] MEDS ORDERED: amLODIPine BESYLATE 5 MG TABLET PO SCH (09:00)
[2020-06-02] MEDS ORDERED: DULoxetine HCL 30 MG CAPSULE.DR PO SCH (09:00)
[2020-06-02] MEDS ORDERED: FAMO20TA5 PO (10:20)
--- NOTE | 2020-06-02 10:24 | PDOC3 ---
Discharge Summary Visit Information Date of Admission: Jun 01, 2020 Date of Discharge: Jun 02, 2020 Admitting Diagnosis Comment: Chest pain stress and anxiety CAD with 2 vessel CABG CABG with Dr. Fiona gomez , 2016 Left ventricle systolic function is mildly impaired. The Ejection Fraction is 45-50% global hypokinesis of the left ventricle. moderate tricuspid regurgitation. There is moderate pulmonary hypertension. The PA pressure was estimated at 47 mmHg. glaucoma GERD CKD STAGE 3-4 hypertensive urgency Final Diagnosis Problems Medical Problems: (1) Chest pain acs ruled out Status: Acute stress and anxiety CAD with 2 vessel CABG CABG with Dr. Fiona gomez , 2016 Left ventricle systolic function is mildly impaired. The Ejection Fraction is 45-50% global hypokinesis of the left ventricle. moderate tricuspid regurgitation. There is moderate pulmonary hypertension. The PA pressure was estimated at 47 mmHg. glaucoma GERD CKD STAGE 3-4 Brief Hospital Course Allergies Allergies Coded Allergies Type Severity Reaction Last Updated Verified codeine Adverse Reaction Intermediate doesnt like the way it makes him feel Yes Vital Signs Vital Signs Date Time Temp Pulse Resp B/P (MAP) Pulse Ox O2 Delivery O2 Flow Rate FiO2 06/02/20 08:00 Room Air 06/02/20 07:40 86 114/72 06/02/20 07:00 98.1 16 95 98.1 Lab Results Laboratory Tests Test 06/01/20 11:38 06/01/20 15:15 06/01/20 16:10 06/01/20 19:27 White Blood Count 11.5 x10^3/uL (4.0-11.0) Red Blood Count 5.01 x10^6/uL (4.30-5.70) Hemoglobin 14.6 g/dL (13.0-17.5) Hematocrit 43.3 % (39.0-53.0) Mean Corpuscular Volume 86 fL (79-100) Mean Corpuscular Hemoglobin 29 pg (25-35) Mean Corpuscular Hemoglobin Concent 34 g/dL (31-37) Red Cell Distribution Width 14.7 % (11.5-14.5) Platelet Count 187 x10^3/uL (140-400) Neutrophils (%) (Auto) 83 % (31-73) Lymphocytes (%) (Auto) 9 % (24-48) Monocytes (%) (Auto) 7 % (0-9) Eosinophils (%) (Auto) 0 % (0-3) Basophils (%) (Auto) 1 % (0-3) Neutrophils # (Auto) 9.6 x10^3/uL (1.8-7.7) Lymphocytes # (Auto) 1.1 x10^3/uL (1.0-4.8) Monocytes # (Auto) 0.8 x10^3/uL (0.0-1.1) Eosinophils # (Auto) 0.0 x10^3/uL (0.0-0.7) Basophils # (Auto) 0.1 x10^3/uL (0.0-0.2) Prothrombin Time 15.5 SEC (11.7-14.0) Prothromb Time International Ratio 1.3 (0.8-1.1) Activated Partial Thromboplast Time 37 SEC (24-38) Sodium Level 139 mmol/L (136-145) Potassium Level 4.1 mmol/L (3.5-5.1) Chloride Level 102 mmol/L (98-107) Carbon Dioxide Level 27 mmol/L (21-32) Anion Gap 10 (6-14) Blood Urea Nitrogen 23 mg/dL (8-26) Creatinine 1.6 mg/dL (0.7-1.3) Estimated GFR (Cockcroft-Gault) 49.6 BUN/Creatinine Ratio 14 (6-20) Glucose Level 116 mg/dL (70-99) Calcium Level 9.7 mg/dL (8.5-10.1) Magnesium Level 2.2 mg/dL (1.8-2.4) Total Bilirubin 0.8 mg/dL (0.2-1.0) Aspartate Amino Transf (AST/SGOT) 19 U/L (15-37) Alanine Aminotransferase (ALT/SGPT) 14 U/L (16-63) Alkaline Phosphatase 45 U/L (46-116) Troponin I Quantitative < 0.017 ng/mL (0.000-0.055) < 0.017 ng/mL (0.000-0.055) < 0.017 ng/mL (0.000-0.055) NL-Ppj-H-Type Natriuretic Peptide 250 pg/mL (0-449) Total Protein 7.3 g/dL (6.4-8.2) Albumin 3.7 g/dL (3.4-5.0) Albumin/Globulin Ratio 1.0 (1.0-1.7) Lipase 64 U/L (73-393) Urine Collection Type Unknown Urine Color Yellow Urine Clarity Clear Urine pH 6.0 (<5.0-8.0) Urine Specific [place] >=1.030 (1.000-1.030) Urine Protein Negative mg/dL (NEG-TRACE) Urine Glucose (UA) Negative mg/dL (NEG) Urine Ketones (Stick) Trace mg/dL (NEG) Urine Blood Negative (NEG) Urine Nitrite Negative (NEG) Urine Bilirubin Negative (NEG) Urine Urobilinogen Dipstick 1.0 mg/dL (0.2 mg/dL) Urine Leukocyte Esterase Negative (NEG) Urine RBC 0 /HPF (0-2) Urine WBC Occ /HPF (0-4) Urine Bacteria 0 /HPF (0-FEW) Urine Mucus Mod /LPF Laboratory Tests Test 06/01/20 11:38 06/01/20 15:15 06/01/20 16:10 06/01/20 19:27 White Blood Count 11.5 x10^3/uL (4.0-11.0) Red Blood Count 5.01 x10^6/uL (4.30-5.70) Hemoglobin 14.6 g/dL (13.0-17.5) Hematocrit 43.3 % (39.0-53.0) Mean Corpuscular Volume 86 fL (79-100) Mean Corpuscular Hemoglobin 29 pg (25-35) Mean Corpuscular Hemoglobin Concent 34 g/dL (31-37) Red Cell Distribution Width 14.7 % (11.5-14.5) Platelet Count 187 x10^3/uL (140-400) Neutrophils (%) (Auto) 83 % (31-73) Lymphocytes (%) (Auto) 9 % (24-48) Monocytes (%) (Auto) 7 % (0-9) Eosinophils (%) (Auto) 0 % (0-3) Basophils (%) (Auto) 1 % (0-3) Neutrophils # (Auto) 9.6 x10^3/uL (1.8-7.7) Lymphocytes # (Auto) 1.1 x10^3/uL (1.0-4.8) Monocytes # (Auto) 0.8 x10^3/uL (0.0-1.1) Eosinophils # (Auto) 0.0 x10^3/uL (0.0-0.7) Basophils # (Auto) 0.1 x10^3/uL (0.0-0.2) Prothrombin Time 15.5 SEC (11.7-14.0) Prothromb Time International Ratio 1.3 (0.8-1.1) Activated Partial Thromboplast Time 37 SEC (24-38) Sodium Level 139 mmol/L (136-145) Potassium Level 4.1 mmol/L (3.5-5.1) Chloride Level 102 mmol/L (98-107) Carbon Dioxide Level 27 mmol/L (21-32) Anion Gap 10 (6-14) Blood Urea Nitrogen 23 mg/dL (8-26) Creatinine 1.6 mg/dL (0.7-1.3) Estimated GFR (Cockcroft-Gault) 49.6 BUN/Creatinine Ratio 14 (6-20) Glucose Level 116 mg/dL (70-99) Calcium Level 9.7 mg/dL (8.5-10.1) Magnesium Level 2.2 mg/dL (1.8-2.4) Total Bilirubin 0.8 mg/dL (0.2-1.0) Aspartate Amino Transf (AST/SGOT) 19 U/L (15-37) Alanine Aminotransferase (ALT/SGPT) 14 U/L (16-63) Alkaline Phosphatase 45 U/L (46-116) Troponin I Quantitative < 0.017 ng/mL (0.000-0.055) < 0.017 ng/mL (0.000-0.055) < 0.017 ng/mL (0.000-0.055) GF-Cqe-U-Type Natriuretic Peptide 250 pg/mL (0-449) Total Protein 7.3 g/dL (6.4-8.2) Albumin 3.7 g/dL (3.4-5.0) Albumin/Globulin Ratio 1.0 (1.0-1.7) Lipase 64 U/L (73-393) Urine Collection Type Unknown Urine Color Yellow Urine Clarity Clear Urine pH 6.0 (<5.0-8.0) Urine Specific [place] >=1.030 (1.000-1.030) Urine Protein Negative mg/dL (NEG-TRACE) Urine Glucose (UA) Negative mg/dL (NEG) Urine Ketones (Stick) Trace mg/dL (NEG) Urine Blood Negative (NEG) Urine Nitrite Negative (NEG) Urine Bilirubin Negative (NEG) Urine Urobilinogen Dipstick 1.0 mg/dL (0.2 mg/dL) Urine Leukocyte Esterase Negative (NEG) Urine RBC 0 /HPF (0-2) Urine WBC Occ /HPF (0-4) Urine Bacteria 0 /HPF (0-FEW) Urine Mucus Mod /LPF Brief Hospital Course History and Physical Date of Admission Date of Admission DATE: 06/01/20 TIME: 12:59 Identification/Chief Complaint Chief Complaint seen in er with unstable angina, 89 year old male with history of coronary disease, was brought here by EMS from home due to substernal chest pain that started yesterday off and on. Patient was given nitroglycerin and aspirin by EMS on route. Patient said he feels much better after taking nitroglycerin. 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 Patient denies any cough or fever, no abdominal pain, no nausea vomiting. bp very high on arrival Patient was admitted for cardiological evaluation. Recommendations was to perform an echocardiogram continue trending his troponins which fortunately enough were normal. We will follow recommendations from cardiological it security consultant. The present time there does not seem to be any plans to do intervention here in the hospital setting. Seems like an outpatient work-up will be favored. I have placed discharge orders awaiting for final recommendations from cardiology no changes to his medications at the time of this note and the echocardiogram was pending at the time of this note as well. Patient is in good spirits to be going home later in the day hopefully. Signs and symptoms of concern when to seek medical attention were discussed prior to discharge all concerns addressed to the best of my abilities Assessment Assessment Gen.: well-developed well-nourished in no apparent distress Head: Normal shape atraumatic Eyes: Pupils equal reactive to light and accommodation, normal conjunctivae and lids Ears: Normal shape Nose: Normal shape no trauma Mouth: No exudates of the back of throat no thrush no lesions Neck: Supple no JVD no carotid bruit or lymphadenopathy no thyromegaly Chest: Lungs clear to auscultation with good inspiratory effort no crackles rales or rhonchi Cardiovascular: S1-S2 regular rhythm no murmurs gallops or rubs Abdomen: Bowel sounds present soft nontender no hepatosplenomegaly appreciated sign Extremities: No clubbing no cyanosis no edema peripheral pulses palpated bilaterally Neurological: Alert awake oriented in person time place and situation, cranial nerves II through XII intact, no motor or sensory deficits appreciated Psych: Appropriate mood, cooperative Discharge Information Condition at Discharge: Improved Follow Up: Weeks Disposition/Orders: D/C to Home Scheduled Amlodipine Besylate (Amlodipine Besylate) 5 Mg Tablet, 5 MG PO DAILY for , (Reported) Entered as Reported by: Anuel Walker on 06/01/201699 Last Taken: 5 on Unknown Date & Time Last Action: Continued on 06/01/201730 by DIDIER GRIFFIN MD Aspirin (Aspirin) 81 Mg Tab.chew, 81 MG PO QSU for , (Reported) Entered as Reported by: Anuel Walker on 06/01/201700 Last Action: Continued on 06/01/201730 by DIDIER GRIFFIN MD Atorvastatin Calcium (Atorvastatin Calcium) 40 Mg Tablet, 1 TAB PO HS, #30 Ref 5 (Reported) Entered as Reported by: BRUNA MAY on 10/12/161951 Last Action: Continued on 06/01/201730 by DIDIER GRIFFIN MD Brimonidine Tartrate (Alphagan P) 5 Ml Drops, 1 DROP EACHEYE BID, #5 Ref 2 (Reported) Entered as Reported by: SHA MONTOYA on 12/19/15 09 Last Action: Converted on 06/01/201730 by DIDIER GRIFFIN MD Duloxetine Hcl (Duloxetine Hcl) 30 Mg Capsule.dr, 30 MG PO DAILY for , (Reported) Entered as Reported by: Anuel Walker on 06/01/201699 Last Taken: 30 on Unknown Date & Time Last Action: Continued on 06/01/201730 by DIDIER GRIFFIN MD Famotidine (Famotidine) 20 Mg Tablet, 20 MG PO BID for GERD for 14 Days, #28 Prescribed by: ESMER ORTIZ MD on 06/02/20 1020 Gabapentin (Gabapentin) 300 Mg Capsule, 300 MG PO BID for NEUROGENIC PAIN, (Reported) Entered as Reported by: Anuel Walker on 06/01/201747 Last Action: New Order on 06/01/201747 by Anuel Walker Irbesartan (Irbesartan) 150 Mg Tablet, 150 MG PO DAILY for , (Reported) Entered as Reported by: Anuel Walker on 06/01/201699 Last Taken: 150 on Unknown Date & Time Last Action: HELD on 06/01/201730 by DIDIER GRIFFIN MD Mirtazapine (Mirtazapine) 7.5 Mg Tablet, 7.5 MG PO QHS for , (Reported) Entered as Reported by: Anuel Walker on 06/01/201699 Last Taken: 7.5 on Unknown Date & Time Last Action: HELD on 06/01/201730 by DIDIER GRIFFIN MD Timolol Maleate (Timolol Maleate) 10 Ml Drops, [facility] Ref 5 (Reported) Entered as Reported by: SHA MONTOYA on 12/19/15 0924 Last Action: Continued on 06/01/201730 by DIDIER GRIFFIN MD Scheduled PRN Furosemide (Furosemide) 40 Mg Tablet, 20 MG PO PRN DAILY PRN for SEE COMMENTS for 7 Days, (Reported) Entered as Reported by: OLINDA ROSARIO on 04/19/16 1225 Last Action: Continued on 06/01/201730 by DIDIER GRIFFIN MD Hydrocodone/Acetaminophen (Hydrocodone-Acetamin 5-325 mg) 1 Each Tablet, 5-325 MG PO PRN Q6HRS PRN for PAIN, (Reported) Entered as Reported by: Anuel Walker on 06/01/201699 Last Taken: 5-325 on Unknown Date & Time Last Action: HELD on 06/01/201730 by DIDIER GRIFFIN MD Oxymetazoline Hcl (Afrin) 15 Ml Mist, 15 ML NS HS PRN for CONGESTION, (Reported) Entered as Reported by: GEMMA LABOY on 10/12/162143 Last Action: HELD on 06/01/201730 by DIDIER GRIFFIN MD Discontinued Medications Aspirin (Aspirin) 325 Mg Tablet, 1 TAB PO WEEKLY, #30 Ref 5 (Reported) Discontinued Reason: Prescription changed Entered as Reported by: BRUNA MAY on 10/12/161950 Last Action: Reviewed on 06/01/201699 by Anuel Walker Gabapentin (Gabapentin ) 100 Mg Capsule, 100 MG PO HS, (Reported) Discontinued Reason: Prescription changed Entered as Reported by: BRUNA MAY on 10/12/161951 Last Action: Continued on 06/01/201730 by DIDIER GRIFFIN MD Gabapentin (Gabapentin) 100 Mg Capsule, 200 MG PO DAILY for , (Reported) Entered as Reported by: Anuel Walker on 06/01/201699 Last Taken: 200 on Unknown Date & Time Last Action: Discontinued on 06/01/201747 by Anuel Walker Justicifation of Admission Dx: Justifications for Admission: Justification of Admission Dx: Yes Angina: New-Onset ESMER ORTIZ MD Jun 02, 2020 10:24
--- NOTE | 2020-06-02 10:42 | NUR ---
SS following for discharge planning. SS reviewed pt chart and discussed with pt RN. Pt is from home with spouse and is currently on room air. Discharge order on the chart for home with self care.
[2020-06-02 11:00] VITALS: BP 122/67
--- NOTE | 2020-06-02 11:00 | PDOC2 ---
CONSULT Date of Consult Date of Consult DATE: 06/02/20 TIME: 10:48 Reason for Consult Reason for Consult: CKD Referring Physician Referring Physician: Dr. Bergman Identification/Chief Complaint Chief Complaint " I WANT TO GO HOME " Source Source: Chart review History of Present Illness Reason for Visit: Pt is 89 year old AA male with history of coronary disease, was brought to ER by EMS from home due to substernal chest pain off and on. Patient was given nitroglycerin and aspirin by EMS en route. He felt much better after taking nitroglycerin. Patient denies any cough or fever, no abdominal pain, no nausea vomiting. Denies any urinary complaints, denies symptoms of UTI. States he has been told by his family doctor that his Kidney function is normal. 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 Endocrine: No pertinent hx Past Surgical History Past Surgical History: Other Family History Family History: Coronary Artery Disease, High Cholestrol, Hypertension Social History No ALCOHOL: none Drugs: None Lives: with Family Current Problem List Problem List Problems Medical Problems: (1) Chest pain Status: Acute Current Medications Current Medications Current Medications Fentanyl Citrate (Fentanyl 2ml Vial) 100 mcg STK-MED ONCE .ROUTE ; Start 06/01/20 at 11:29; Stop 06/01/20 at 11:30; Status DC Midazolam HCl (Versed) 2 mg STK-MED ONCE .ROUTE ; Start 06/01/20 at 11:29; Stop 06/01/20 at 11:30; Status DC Iodixanol (Visipaque 320) 100 ml STK-MED ONCE .ROUTE ; Start 06/01/20 at 11:30; Stop 06/01/20 at 11:30; Status DC Lidocaine HCl (Lidocaine 1% 20ml Vial) 20 ml STK-MED ONCE .ROUTE ; Start 06/01/20 at 11:30; Stop 06/01/20 at 11:30; Status DC Heparin Sodium/ Sodium Chloride 1,000 ml @ As Directed STK-MED ONCE .ROUTE ; Start 06/01/20 at 11:30; Stop 06/01/20 at 11:30; Status DC Ondansetron HCl (Zofran) 4 mg PRN Q8HRS PRN IV NAUSEA/VOMITING; Start 06/01/20 at 13:00; Stop 06/02/20 at 12:59 Ondansetron HCl (Zofran) 4 mg 1X ONCE IVP Last administered on 06/01/20at 14:36; Start 06/01/20 at 14:30; Stop 06/01/20 at 14:31; Status DC Amlodipine Besylate (Norvasc) 5 mg DAILY PO Last administered on 06/02/20at 07:40; Start 06/02/20 at 09:00 Aspirin (Aspirin Chewable) 81 mg QSU PO ; Start 06/04/20 at 16:00 Atorvastatin Calcium (Lipitor) 40 mg HS PO Last administered on 06/01/20at 20:55; Start 06/01/20 at 21:00 Duloxetine HCl (Cymbalta) 30 mg DAILY PO Last administered on 06/02/20at 07:40; Start 06/02/20 at 09:00 Furosemide (Lasix) 20 mg PRN DAILY PRN PO SEE COMMENTS; Start 06/01/20 at 17:30 Gabapentin (Neurontin) 100 mg HS PO Last administered on 06/01/20at 20:55; Start 06/01/20 at 21:00 Timolol Maleate (Timoptic 0.5% Oph) 1 drop DAILYWBKFT OU Last administered on 06/02/20at 07:34; Start 06/02/20 at 08:00 Brimonidine Tartrate (Alphagan) 1 drop BID OU Last administered on 06/02/20at 07:34; Start 06/01/20 at 21:00 Sodium Chloride (Normal Saline Flush) 3 ml QSHIFT PRN IV AFTER MEDS AND BLOOD DRAWS; Start 06/01/20 at 17:45 Ondansetron HCl (Zofran) 4 mg PRN Q4HRS PRN IV NAUSEA/VOMITING; Start 06/01/20 at 17:45 Acetaminophen (Tylenol) 650 mg PRN Q4HRS PRN PO TEMP OVER 100.4F OR MILD PAIN Last administered on 06/01/20at 20:12; Start 06/01/20 at 17:45 Al Hydroxide/Mg Hydroxide (Mylanta Plus Xs) 30 ml PRN DAILY PRN PO HEARTBURN / GAS Last administered on 06/02/20at 07:33; Start 06/01/20 at 17:45 Clonidine HCl (Catapres) 0.1 mg PRN Q6HRS PRN PO SBP>160 OR DBP>90; Start 06/01/20 at 17:45 Sodium Monofluorophosphate (Fleet Adult) 133 ml PRN DAILY PRN NE CONSTIPATION; Start 06/01/20 at 17:45 Docusate Sodium (Colace) 100 mg PRN BID PRN PO HARD STOOLS; Start 06/01/20 at 17:45 Albuterol Sulfate (Ventolin Neb Soln) 2.5 mg PRN Q4HRS PRN NEB SHORTNESS OF BREATH; Start 06/01/20 at 17:45 Guaifenesin (Robitussin) 200 mg PRN Q4HRS PRN PO COUGH; Start 06/01/20 at 17:45 Lorazepam (Ativan) 0.5 mg PRN Q4HRS PRN PO ANXIETY / AGITATION Last administered on 06/01/20at 20:55; Start 06/01/20 at 17:45 Enoxaparin Sodium (Lovenox 40mg Syringe) 40 mg Q24H SQ ; Start 06/01/20 at 17:45; Status UNV Enoxaparin Sodium (Lovenox 30mg Syringe) 30 mg Q24H SQ Last administered on 06/01/20at 20:55; Start 06/01/20 at 18:00 Active Scripts Active Famotidine 20 Mg Tablet 20 Mg PO BID 14 Days Reported Gabapentin 300 Mg Capsule 300 Mg PO BID Aspirin 81 Mg Tab.chew 81 Mg PO QSU Duloxetine Hcl 30 Mg Capsule.dr 30 Mg PO DAILY Hydrocodone-Acetamin 5-325 mg (Hydrocodone/Acetaminophen) 1 Each Tablet 5-325 Mg PO PRN Q6HRS PRN Mirtazapine 7.5 Mg Tablet 7.5 Mg PO QHS Irbesartan 150 Mg Tablet 150 Mg PO DAILY Amlodipine Besylate 5 Mg Tablet 5 Mg PO DAILY Afrin (Oxymetazoline Hcl) 15 Ml Mist 15 Ml NS HS PRN Atorvastatin Calcium 40 Mg Tablet 1 Tab PO HS Furosemide 40 Mg Tablet 20 Mg PO PRN DAILY PRN 7 Days Alphagan P (Brimonidine Tartrate) 5 Ml Drops 1 Drop EACHEYE BID Timolol Maleate 10 Ml Drops 1 Drop EACHEYE DAILYWBKFT Allergies Allergies: Coded Allergies: codeine (Verified Adverse Reaction, Intermediate, doesnt like the way it makes him feel, 12/19/15) ROS Review of System As per HPI , rest of the ROS is negative Physical Exam Physical Exam Gen- NAD , talking on the phone HEEN - No scleral icterus, OM moist Neck No jugular venous distension, supple Lungs CTA, Non labored CV regular Rhythm . No murmurs, rubs or gallops. Abdomin - normal bowel sounds, no masses, no organomegaly Extremities No edema, No cyanosis Msk: No traumua Neuro: No focal deficits No Momin, No CVA or SP tenderness Skin No rash Vital Signs Vital Signs Date Time Temp Pulse Resp B/P (MAP) Pulse Ox O2 Delivery O2 Flow Rate FiO2 06/02/20 08:00 Room Air 06/02/20 07:40 86 114/72 06/02/20 07:00 98.1 16 95 98.1 Assessment & Plan CKD stage 3- Per [facility] records - since 2016 Stable renal function at presentation,E-lytes stable No complaints voiced by Pt. UA unremarkable ,Supportive care, avoid ne phrotoxins Chest pain-Atypical per cardiology, follows with Card as OP CAD with 2 vessel CABG 2018 Hypertensive urgency- card managing Hx of GREGORIO in 2016 Labs Labs Laboratory Tests Test 06/01/20 11:38 06/01/20 15:15 06/01/20 16:10 06/01/20 19:27 White Blood Count 11.5 x10^3/uL (4.0-11.0) Red Blood Count 5.01 x10^6/uL (4.30-5.70) Hemoglobin 14.6 g/dL (13.0-17.5) Hematocrit 43.3 % (39.0-53.0) Mean Corpuscular Volume 86 fL (79-100) Mean Corpuscular Hemoglobin 29 pg (25-35) Mean Corpuscular Hemoglobin Concent 34 g/dL (31-37) Red Cell Distribution Width 14.7 % (11.5-14.5) Platelet Count 187 x10^3/uL (140-400) Neutrophils (%) (Auto) 83 % (31-73) Lymphocytes (%) (Auto) 9 % (24-48) Monocytes (%) (Auto) 7 % (0-9) Eosinophils (%) (Auto) 0 % (0-3) Basophils (%) (Auto) 1 % (0-3) Neutrophils # (Auto) 9.6 x10^3/uL (1.8-7.7) Lymphocytes # (Auto) 1.1 x10^3/uL (1.0-4.8) Monocytes # (Auto) 0.8 x10^3/uL (0.0-1.1) Eosinophils # (Auto) 0.0 x10^3/uL (0.0-0.7) Basophils # (Auto) 0.1 x10^3/uL (0.0-0.2) Prothrombin Time 15.5 SEC (11.7-14.0) Prothromb Time International Ratio 1.3 (0.8-1.1) Activated Partial Thromboplast Time 37 SEC (24-38) Sodium Level 139 mmol/L (136-145) Potassium Level 4.1 mmol/L (3.5-5.1) Chloride Level 102 mmol/L (98-107) Carbon Dioxide Level 27 mmol/L (21-32) Anion Gap 10 (6-14) Blood Urea Nitrogen 23 mg/dL (8-26) Creatinine 1.6 mg/dL (0.7-1.3) Estimated GFR (Cockcroft-Gault) 49.6 BUN/Creatinine Ratio 14 (6-20) Glucose Level 116 mg/dL (70-99) Calcium Level 9.7 mg/dL (8.5-10.1) Magnesium Level 2.2 mg/dL (1.8-2.4) Total Bilirubin 0.8 mg/dL (0.2-1.0) Aspartate Amino Transf (AST/SGOT) 19 U/L (15-37) Alanine Aminotransferase (ALT/SGPT) 14 U/L (16-63) Alkaline Phosphatase 45 U/L (46-116) Troponin I Quantitative < 0.017 ng/mL (0.000-0.055) < 0.017 ng/mL (0.000-0.055) < 0.017 ng/mL (0.000-0.055) FT-Vwc-T-Type Natriuretic Peptide 250 pg/mL (0-449) Total Protein 7.3 g/dL (6.4-8.2) Albumin 3.7 g/dL (3.4-5.0) Albumin/Globulin Ratio 1.0 (1.0-1.7) Lipase 64 U/L (73-393) Urine Collection Type Unknown Urine Color Yellow Urine Clarity Clear Urine pH 6.0 (<5.0-8.0) Urine Specific [place] >=1.030 (1.000-1.030) Urine Protein Negative mg/dL (NEG-TRACE) Urine Glucose (UA) Negative mg/dL (NEG) Urine Ketones (Stick) Trace mg/dL (NEG) Urine Blood Negative (NEG) Urine Nitrite Negative (NEG) Urine Bilirubin Negative (NEG) Urine Urobilinogen Dipstick 1.0 mg/dL (0.2 mg/dL) Urine Leukocyte Esterase Negative (NEG) Urine RBC 0 /HPF (0-2) Urine WBC Occ /HPF (0-4) Urine Bacteria 0 /HPF (0-FEW) Urine Mucus Mod /LPF Laboratory Tests Test 06/01/20 11:38 06/01/20 15:15 06/01/20 16:10 06/01/20 19:27 White Blood Count 11.5 x10^3/uL (4.0-11.0) Red Blood Count 5.01 x10^6/uL (4.30-5.70) Hemoglobin 14.6 g/dL (13.0-17.5) Hematocrit 43.3 % (39.0-53.0) Mean Corpuscular Volume 86 fL (79-100) Mean Corpuscular Hemoglobin 29 pg (25-35) Mean Corpuscular Hemoglobin Concent 34 g/dL (31-37) Red Cell Distribution Width 14.7 % (11.5-14.5) Platelet Count 187 x10^3/uL (140-400) Neutrophils (%) (Auto) 83 % (31-73) Lymphocytes (%) (Auto) 9 % (24-48) Monocytes (%) (Auto) 7 % (0-9) Eosinophils (%) (Auto) 0 % (0-3) Basophils (%) (Auto) 1 % (0-3) Neutrophils # (Auto) 9.6 x10^3/uL (1.8-7.7) Lymphocytes # (Auto) 1.1 x10^3/uL (1.0-4.8) Monocytes # (Auto) 0.8 x10^3/uL (0.0-1.1) Eosinophils # (Auto) 0.0 x10^3/uL (0.0-0.7) Basophils # (Auto) 0.1 x10^3/uL (0.0-0.2) Prothrombin Time 15.5 SEC (11.7-14.0) Prothromb Time International Ratio 1.3 (0.8-1.1) Activated Partial Thromboplast Time 37 SEC (24-38) Sodium Level 139 mmol/L (136-145) Potassium Level 4.1 mmol/L (3.5-5.1) Chloride Level 102 mmol/L (98-107) Carbon Dioxide Level 27 mmol/L (21-32) Anion Gap 10 (6-14) Blood Urea Nitrogen 23 mg/dL (8-26) Creatinine 1.6 mg/dL (0.7-1.3) Estimated GFR (Cockcroft-Gault) 49.6 BUN/Creatinine Ratio 14 (6-20) Glucose Level 116 mg/dL (70-99) Calcium Level 9.7 mg/dL (8.5-10.1) Magnesium Level 2.2 mg/dL (1.8-2.4) Total Bilirubin 0.8 mg/dL (0.2-1.0) Aspartate Amino Transf (AST/SGOT) 19 U/L (15-37) Alanine Aminotransferase (ALT/SGPT) 14 U/L (16-63) Alkaline Phosphatase 45 U/L (46-116) Troponin I Quantitative < 0.017 ng/mL (0.000-0.055) < 0.017 ng/mL (0.000-0.055) < 0.017 ng/mL (0.000-0.055) OB-Clw-H-Type Natriuretic Peptide 250 pg/mL (0-449) Total Protein 7.3 g/dL (6.4-8.2) Albumin 3.7 g/dL (3.4-5.0) Albumin/Globulin Ratio 1.0 (1.0-1.7) Lipase 64 U/L (73-393) Urine Collection Type Unknown Urine Color Yellow Urine Clarity Clear Urine pH 6.0 (<5.0-8.0) Urine Specific [place] >=1.030 (1.000-1.030) Urine Protein Negative mg/dL (NEG-TRACE) Urine Glucose (UA) Negative mg/dL (NEG) Urine Ketones (Stick) Trace mg/dL (NEG) Urine Blood Negative (NEG) Urine Nitrite Negative (NEG) Urine Bilirubin Negative (NEG) Urine Urobilinogen Dipstick 1.0 mg/dL (0.2 mg/dL) Urine Leukocyte Esterase Negative (NEG) Urine RBC 0 /HPF (0-2) Urine WBC Occ /HPF (0-4) Urine Bacteria 0 /HPF (0-FEW) Urine Mucus Mod /LPF Review All relevant outside records, renal labs, imaging studies, telemetry/EKG's were reviewed. Images Images History: Reason: chest pain,/ Spl. Instructions: / History: Comparison: None. Findings: No consolidation or pleural effusion. Normal heart size. No pneumothorax. Calcified mediastinal and hilar lymph nodes as well as right basilar pulmonary nodule, likely prior granulomatous disease. Impression: 1. No acute cardiopulmonary process. HEATHER CORDOVA MD Jun 02, 2020 11:00
--- NOTE | 2020-06-02 12:00 | PDOC ---
VIOLETTE WELSH MARY 06/02/20 1200: CARDIO Progress Notes Date and Time Date of Service 06/02/20 Time of Evaluation 1100 Subjective Subjective: No Chest Pain, No shortness of breath, No Palpitations Vitals Vitals Vital Signs Date Time Temp Pulse Resp B/P (MAP) Pulse Ox O2 Delivery O2 Flow Rate FiO2 06/02/20 11:00 98.1 74 16 122/67 (85) 98 Room Air 98.1 Weight Weight [ ] Input and Output Intake and Output Intake and Output 06/02/20 07:00 Intake Total 640 ml Output Total 500 ml Balance 140 ml Intake Oral 640 ml Output Urine Total 500 ml Laboratory Labs Laboratory Tests Test 06/01/20 15:15 06/01/20 16:10 06/01/20 19:27 Troponin I Quantitative < 0.017 ng/mL (0.000-0.055) < 0.017 ng/mL (0.000-0.055) Urine Collection Type Unknown Urine Color Yellow Urine Clarity Clear Urine pH 6.0 (<5.0-8.0) Urine Specific [place] >=1.030 (1.000-1.030) Urine Protein Negative mg/dL (NEG-TRACE) Urine Glucose (UA) Negative mg/dL (NEG) Urine Ketones (Stick) Trace mg/dL (NEG) Urine Blood Negative (NEG) Urine Nitrite Negative (NEG) Urine Bilirubin Negative (NEG) Urine Urobilinogen Dipstick 1.0 mg/dL (0.2 mg/dL) Urine Leukocyte Esterase Negative (NEG) Urine RBC 0 /HPF (0-2) Urine WBC Occ /HPF (0-4) Urine Bacteria 0 /HPF (0-FEW) Urine Mucus Mod /LPF Physical Exam HEENT: Neck Supple W Full Motion Chest: Symmetric LUNGS: Clear to Auscultation Heart: RRR Abdomen: Soft N/T Extremities: No Edema Neurology: alert, follow commands Assessment Assessment 1. Chest pain, atypical; AMI ruled out 2. CAD s/p CABG 2015; clinically stable 3. Hypertension; controlled 4. Hyperlipidemia 5. CKD; Cr stable Recommendations Continue current secondary prevention measures. Echo to assess LV systolic function If echo WNL, may discharge from a CV standpoint and f/u in our clinic with Dr. Armendariz as scheduled. Justicifation of Admission Dx: Justifications for Admission: Justification of Admission Dx: Yes Angina: New-Onset DARRIAN ARMENDARIZ MD 06/02/20 1507: CARDIO Progress Notes Plan Plan Pt. seen and examined. Agree with above HIGHBALLER note. Ok to DC. Echo reviewed. VIOLETTE WELSH APRN Jun 02, 2020 12:00 DARRIAN ARMENDARIZ MD Jun 02, 2020 15:07
[2020-06-02 15:00] VITALS: BP 106/60
--- NOTE | 2020-06-02 15:42 | CARD ---
MR#: [id number] Date of Study: 06/02/2020 Ordering Physician: VIOLETTE WELSH, Referring Physician: VIOLETTE WELSH, Tech: Kylee Shipley JAISON APPROVED REPORT EXAM: Two-dimensional and M-mode echocardiogram with Doppler and color Doppler. Other Information Quality : Good INDICATION Chest Pain 2D DIMENSIONS RVDd3.2 (2.9-3.5cm)Left Atrium(2D)3.0 (1.6-4.0cm) IVSd0.8 (0.7-1.1cm)Aortic Root(2D)2.8 (2.0-3.7cm) LVDd4.5 (3.9-5.9cm)LVOT Diameter2.0 (1.8-2.4cm) PWd0.6 (0.7-1.1cm)LVDs2.7 (2.5-4.0cm) FS (%) 25.0 %SV64.7 ml LVEF(%)50.0 (>50%) Aortic Valve AoV Peak Bernard.114.1cm/sAoV VTI22.2cm AO Peak GR.5.2mmHgLVOT Peak Bernard.85.3cm/s LVOT VTI 17.67cmAO Mean GR.3mmHg HARDEEP (VMAX)2.07po9QNJ (VTI)2.45cm2 Mitral Valve MV E Cazoapel55.3cm/sMV DECEL ACWE086la MV A Pncpvyzl20.9cm/sMV ZNS48dy E/A Ratio0.8MVA (PHT)3.00cm2 TDI E/Lateral E'19.8E/Medial E'11.0 Tricuspid Valve TR P. Xyvykczi319nr/sRAP ECPLGTKZ3snBv TR Peak Gr.99vkPpJCDB98wtXu Pulmonary Vein S1 Opqulvnu74.3cm/sD2 Yjlsktjb22.2cm/s LEFT VENTRICLE The left ventricle is normal size. There is normal left ventricular wall thickness. Left ventricle sy stolic function is normal. The Ejection Fraction is 55-60%. There is normal LV segmental wall motion. Transmitral Doppler flow pattern is Grade I-abnormal relaxation pattern. RIGHT VENTRICLE The right ventricle is normal size. The right ventricular systolic function is normal. ATRIA The left atrium size is normal. The right atrium size is normal. The interatrial septum is intact wit h no evidence for an atrial septal defect or patent foramen ovale as noted on 2-D or Doppler imaging. AORTIC VALVE The aortic valve is mildly thickened but opens well. Doppler and Color Flow revealed no significant a ortic regurgitation. There is no significant aortic valvular stenosis. MITRAL VALVE The mitral valve is normal in structure and function. There is no evidence of mitral valve prolapse. There is no mitral valve stenosis. Doppler and Color-flow revealed mild mitral regurgitation. TRICUSPID VALVE The tricuspid valve is normal in structure and function. Doppler and Color Flow revealed mild tricusp id regurgitation. There is mild pulmonary hypertension. The PA pressure was estimated at 39 mmHg. The re is no tricuspid valve stenosis. PULMONIC VALVE The pulmonary valve is normal in structure and function. Doppler and Color Flow revealed mild pulmoni c valvular regurgitation. There is no pulmonic valvular stenosis. GREAT VESSELS The aortic root is normal in size. The ascending aorta is normal in size. The IVC is normal in size a nd collapses >50% with inspiration. PERICARDIAL EFFUSION There is no evidence of significant pericardial effusion. Critical Notification Critical Value: No <Conclusion> Left ventricle systolic function is normal. The Ejection Fraction is 55-60%. There is normal LV segmental wall motion. Transmitral Doppler flow pattern is Grade I-abnormal relaxation pattern. Mild mitral regurgitation. Mild tricuspid regurgitation. There is mild pulmonary hypertension. The PA pressure was estimated at 39 mmHg. There is no evidence of significant pericardial effusion. Signed by : Mk Klein, Electronically Approved : 06/02/2020 15:42:03
--- NOTE | 2020-06-02 16:09 | NUR ---
DISCHARGED PATIENT HOME. DISCHARGE INSTRUCTIONS GIVEN. PIV AND MONITOR REMOVED. ESCORTED PATIENT PER WHEELCHAIR OFF UNIT INTO A PRIVATE VEHICLE.
[2020-06-02 16:29] LABS: CHOLESTEROL/HDL RATIO 2.5
[2020-06-04] MEDS ORDERED: ASPIRIN CHEWABLE 81 MG TABLET. PO SCH (16:00)
== END 2020-06-02 16:10 | disposition home or self-care (01) ==
LOC: ER 11:27 → ED HOLD 12:46 → 2 NORTH 14:53
PROVIDERS: ADMIT Family Medicine; ATTEND Family Medicine
DX: I25.10 Atherosclerotic heart disease of native coronary artery without angina pectoris (principal); R07.89 Other chest pain; I16.0 Hypertensive urgency; I13.0 Hypertensive heart and chronic kidney disease with heart failure and stage 1 through stage 4 chronic kidney disease, or unspecified chronic kidney disease; I50.21 Acute systolic (congestive) heart failure; N18.4 Chronic kidney disease, stage 4 (severe); I07.1 Rheumatic tricuspid insufficiency; E78.00 Pure hypercholesterolemia, unspecified; H40.9 Unspecified glaucoma; M19.90 Unspecified osteoarthritis, unspecified site; K21.9 Gastro-esophageal reflux disease without esophagitis; I25.2 Old myocardial infarction; F41.9 Anxiety disorder, unspecified; F43.9 Reaction to severe stress, unspecified; N40.0 Benign prostatic hyperplasia without lower urinary tract symptoms; Z95.1 Presence of aortocoronary bypass graft; Z79.82 Long term (current) use of aspirin; Z98.890 Other specified postprocedural states
CPT/HCPCS: 36415; 71045; 80053; 80061; 81001; 83690; 83735; 83880; 84484; 85025; 85610; 85730; 93005; 93306; 94640; 96372; 96374; 96376; 99285; G0378; J1650; J2405; G0379